=== PATIENT | male | born 1945 | race Caucasian/White ===

== ENCOUNTER → 2019-03-29 16:31 | Outpatient (CLI) | payer MEDICARE, SELFPAY ==
--- NOTE | 2019-03-29 16:46 | VDLE_ITS ---
Reason For Study: Pain LLE Procedure LEFT Exam performed in department. GSV is normal. A preliminary report was called and/or faxed CFV is compressible, spontaneous, phasic, to Kourtney. competent, and demonstrates normal augmentation. FV is compressible, spontaneous, phasic, competent and demonstrates normal augmentation. POP V is compressible, spontaneous, phasic, competent and demonstrates normal augmentation. T/P Trunk is compressible. PTV is compressible. LT PerV is compressible. Interpretation Summary Deep veins of the left lower extremity are patent and compressible segmentally. There is no evidence of left lower extremity deep vein thrombosis. Valvular competence appears intact within the proximal deep venous system on the left . The left greater saphenous vein appears patent and compressible segmentally. Ordering Physician: Honey Oconnell Referring Physician: Smith Stewart Performed By: Michelle Santillan RVT
== END ==
PROVIDERS: Family Provider Family Medicine; PCP Family Medicine; Referring Provider Physician Assistant; Visit Provider Physician Assistant
DX: M79.605 Pain in left leg (principal)
CPT/HCPCS: 93971

== ENCOUNTER → 2020-05-08 10:31 | Outpatient (CLI) | payer MEDICARE, OTHER, SELFPAY ==
[2020-05-11 20:07] LABS: Alternaria alternata <0.10 kU/L (Class 0); Aspergillus fumigatus <0.10 kU/L (Class 0); Bahia Grass <0.10 kU/L (Class 0); Bermuda Grass <0.10 kU/L (Class 0); Bluegrass, Kentucky <0.10 kU/L (Class 0); Cat Hair/Dander, Standard <0.10 kU/L (Class 0); Cedar, Mountain <0.10 kU/L (Class 0); Cladosporium herbarum <0.10 kU/L (Class 0); Cockroach, American <0.10 kU/L (Class 0); D pteronyssinus 0.84 kU/L (Class II); Dog Epithelia <0.10 kU/L (Class 0); Elm, American White <0.10 kU/L (Class 0); Hazelnut Tree <0.10 kU/L (Class 0); Hickory, White <0.10 kU/L (Class 0); Johnson Grass <0.10 kU/L (Class 0); Maple/Box Elder <0.10 kU/L (Class 0); Mucor racemosus <0.10 kU/L (Class 0); Mugwort <0.10 kU/L (Class 0); Mulberry, White <0.10 kU/L (Class 0); Oak, White <0.10 kU/L (Class 0); Penicillium chrysogen <0.10 kU/L (Class 0); Pigweed, Rough <0.10 kU/L (Class 0); Plantain, English <0.10 kU/L (Class 0); Ragweed, Short/Common <0.10 kU/L (Class 0); Sheep Sorrel(Dock) <0.10 kU/L (Class 0); Stemphylium herbarum <0.10 kU/L (Class 0); Sweet Gum <0.10 kU/L (Class 0); Sycamore, American <0.10 kU/L (Class 0)
[2020-05-11 20:50] LABS: Nettle <0.10 kU/L (Class 0)
== END ==
PROVIDERS: PCP Family Medicine; Referring Provider Internal Medicine Pulmonary Disease; Visit Provider Internal Medicine Pulmonary Disease
DX: J30.9 Allergic rhinitis, unspecified (principal)
CPT/HCPCS: 36415; 86003

== ENCOUNTER → 2022-01-06 | Outpatient (CLI) | payer MEDICARE, OTHER, SELFPAY ==
[2022-01-06 15:21] LABS: Absolute Lymphocyte Count 1.15 X10^3/uL (0.83-4.51); Absolute Neutrophil Count 4.7 X10^3/uL (2.0-7.7); Basophil# 0.07 X10^3/uL; Eosinophil# 0.36 X10^3/uL; Eosinophils% 5.1 % (0-5); Hematocrit 38.2 % (40-54); Hemoglobin 12.7 g/dL (13.0-16.5); Lymphocyte # 1.15 X10^3/ul (0.83-4.51); Lymphocyte % 16.2 % (19-41); Mean Corp Hgb Conc 33.2 g/dL (32-36); Mean Corpuscular Hgb 30.4 pg (27.0-32.0); Mean Corpuscular Volume 91.4 fL (80-94); Mean Platelet Vol. 10.5 fl (6.2-12.0); Monocyte# 0.73 X10^3/uL; Monocyte% 10.3 % (0-10); NRBC Flagged by Analyzer 0 % (0-5); Neutrophil # 4.73 X10^3/uL (2.7-7.7); Neutrophil % 66.7 % (47-70); Platelet Count 189 K/mm3 (150-450); RBC Distribution Width CV 13.1 % (11.6-14.6); RBC Distribution Width SD 43.3 fl (35.1-43.9); Red Blood Count 4.18 M/mm3 (4.6-6.2); White Blood Count 7.1 K/mm3 (4.4-11.0)
[2022-01-06 16:25] LABS: ALB/GLOB Ratio 1.1 RATIO (0.9-2.4); AST(SGOT) 21 U/L (15-37); Alanine Aminotransfer ALT/SGPT 25 U/L (16-61); Albumin, Serum 3.5 g/dL (3.2-5.0); Alkaline Phosphatase 87 U/L (45-117); Anion Gap 3 (5-15); BUN 19 mg/dL (7-18); BUN/Creat Ratio 18.3 RATIO (10-20); Chloride 104 mmol/L (98-107); Creatinine, Serum 1.04 mg/dL (0.70-1.30); EST Glomerular Filtration Rate 73 mL/min (>60); Est Glom Filt Rate - Afr Amer 89 mL/min (>60); Ferritin 123 ng/mL (26-388); Globulin 3.3 g/dL (2.2-4.2); Glucose 116 mg/dL (74-106); Potassium 4.5 mmol/L (3.5-5.1); Protein, Total 6.8 g/dL (6.4-8.2); Sodium Level 138 mmol/L (136-145)
== END | disposition home or self-care (01) ==
LOC: MFPLAB 12:21
PROVIDERS: PCP Family Medicine; Referring Provider Family Medicine; Visit Provider Family Medicine
DX: R10.12 Left upper quadrant pain (principal); I10 Essential (primary) hypertension; E61.1 Iron deficiency
CPT/HCPCS: 36415; 80053; 82728; 85025

== ENCOUNTER → 2022-01-10 | Outpatient (CLI) | payer MEDICARE, OTHER, SELFPAY | END | disposition home or self-care (01) | LOC: MFPLAB 10:54 | PROVIDERS: PCP Family Medicine; Visit Provider Family Medicine | DX: R10.12 Left upper quadrant pain (principal); I10 Essential (primary) hypertension; E61.1 Iron deficiency | CPT/HCPCS: 82653; 83986 ==

== ENCOUNTER → 2022-02-03 | Outpatient (CLI) | payer MEDICARE, OTHER, SELFPAY ==
[2022-02-09 12:15] LABS: Pancreatic Elastase, Fecal 311 (>200)
== END | disposition home or self-care (01) ==
LOC: LABSPEC 10:42
PROVIDERS: PCP Family Medicine; Referring Provider Family Medicine; Visit Provider Family Medicine
DX: R10.12 Left upper quadrant pain (principal); I10 Essential (primary) hypertension; E61.1 Iron deficiency
CPT/HCPCS: 82653

== ENCOUNTER 2022-09-14 06:09 | Emergency (ER) | payer MEDICARE, OTHER, SELFPAY ==
[2022-09-14 06:10] VITALS: PULSE 93; RESP 18; TEMP 36.2; O2SAT 96; BMI 32.2
[2022-09-14 06:13] VITALS: O2SAT 96
--- NOTE | 2022-09-14 06:55 | RAD_ITS ---
EXAM: XR CHEST, 2 VIEWS CLINICAL INDICATION: cough TECHNIQUE: Frontal and lateral views of the chest. This report was created using [employer] report generation technology. COMPARISON: None. FINDINGS: LUNGS AND PLEURAL SPACES: There is patchy increased opacity over the mid thoracic spine on the lateral view, inferior to the level of the scapula, suspicion of infiltrate in one or both superior segments of the lower lobes but not confirmed on the frontal view. Lung bases appear unremarkable. No effusions. No pneumothorax. HEART: Unremarkable. Cardiac silhouette not enlarged. MEDIASTINUM: Central airways and mediastinal contour are unremarkable. BONES/JOINTS: Unremarkable. SOFT TISSUES: Unremarkable. RAD/Chest PA and Lateral IMPRESSION: 1. Mild increased opacity over the mid thoracic spine, only seen on the lateral view, suspicious for mild posterior-medial lower lobe infiltrate, probably on the right. 2. No other suspicious findings. Electronically Signed: Huong Garcia MD at 7:46 EST ,
[2022-09-14] MEDS: MethylPREDNISolone 125 MG/2 ML Vial IV (07:19)
[2022-09-14 07:39] LABS: Absolute Lymphocyte Count 0.65 X10^3/uL (0.83-4.51); Absolute Neutrophil Count 5.6 X10^3/uL (2.0-7.7); Basophil# 0.06 X10^3/uL; Basophil% 0.8 % (0-1); Eosinophil# 0.35 X10^3/uL; Eosinophils% 4.8 % (0-5); Hematocrit 37.5 % (40-54); Hemoglobin 12.6 g/dL (13.0-16.5); Lymphocyte # 0.65 X10^3/ul (0.83-4.51); Lymphocyte % 8.9 % (19-41); Mean Corp Hgb Conc 33.6 g/dL (32-36); Mean Corpuscular Hgb 29.6 pg (27.0-32.0); Mean Corpuscular Volume 88.2 fL (80-94); Mean Platelet Vol. 9.9 fl (6.2-12.0); Monocyte# 0.55 X10^3/uL; Monocyte% 7.5 % (0-10); NRBC Flagged by Analyzer 0 % (0-5); Neutrophil # 5.64 X10^3/uL (2.7-7.7); Neutrophil % 77.2 % (47-70); Platelet Count 160 K/mm3 (150-450); RBC Distribution Width CV 12.9 % (11.6-14.6); RBC Distribution Width SD 41.8 fl (35.1-43.9); Red Blood Count 4.25 M/mm3 (4.6-6.2); White Blood Count 7.3 K/mm3 (4.4-11.0)
[2022-09-14 07:41] LABS: Anion Gap 6 (5-15); BNP,B-Type NATRIURETIC PEPTIDE 23.4 pg/mL (0-100); BUN 20 mg/dL (7-18); BUN/Creat Ratio 16.1 RATIO (10-20); Chloride 105 mmol/L (98-107); Creatinine, Serum 1.24 mg/dL (0.70-1.30); EST Glomerular Filtration Rate 60 mL/min (>60); Est Glom Filt Rate - Afr Amer 72 mL/min (>60); Estimated Creatinine Clearance 50.69 ml/min; Glucose 309 mg/dL (74-106); Magnesium 2.2 mg/dL (1.6-2.6); Potassium 4.1 mmol/L (3.5-5.1); Sodium Level 137 mmol/L (136-145)
--- NOTE | 2022-09-14 08:00 | EX.ED.DYSGE1 ---
HPI History of Present Illness Chief Complaint: Shortness of Breath Narrative Narrative: Patient is a 76-year-old male with past medical history asthma as well as hypertension and type 2 diabetes. He states for the past 3 to 4 days he has had congestion and mild cough with increased shortness of breath. He states he feels that if he does not use his nebulizer every 4-6 hours that he has difficulty breathing. He denies any chest pain or diaphoresis associated with this. He denies any known sick contact. He states that he feels like his symptoms are worsening and secondary to his has concern for infection and comes in for evaluation [facility] Medical History Asthma Cellulitis of right wrist Hypertension Tear of skin of right wrist Type 2 diabetes mellitus Home Medications albuterol sulfate 90 mcg/actuation aerosol inhaler (Ventolin HFA) 1 inh inhalation ONCE 08/21/21 [History Last Taken Unknown] aspirin 81 mg tablet,delayed release (Adult Low Dose Aspirin) 81 mg PO DAILY 08/21/21 [History Last Taken Unknown] budesonide 180 mcg/actuation breath activated powder inhaler (Pulmicort Flexhaler) 1 inh inhalation DAILY 08/21/21 [History Last Taken Unknown] doxazosin 2 mg tablet 2 mg PO DAILY 08/21/21 [History Last Taken Unknown] glimepiride 2 mg tablet 2 mg PO DAILY 08/21/21 [History Last Taken Unknown] metoprolol succinate 25 mg tablet,extended release 24 hr 25 mg PO DAILY 08/21/21 [History Last Taken Unknown] simvastatin 20 mg tablet 20 mg PO DAILY 08/21/21 [History Last Taken Unknown] alpha lipoic acid 600 mg capsule 600 mg PO BID 08/05/22 [History Last Taken Unknown] nirmatrelvir 300 mg (150 mg x2)-ritonavir 100 mg tablet,dose pack(EUA) (Paxlovid) See Rx Instructions PO .COMPLEX #30 tabs 08/05/22 [Rx Last Taken Unknown] azelastine 137 mcg (0.1 %) nasal spray aerosol 2 spray intranasal BID #30 mL 09/14/22 [Rx Last Taken Unknown] doxycycline monohydrate 100 mg capsule 100 mg PO BID #20 CAPSULES 09/14/22 [Rx Last Taken Unknown] ipratropium 0.5 mg-albuterol 3 mg (2.5 mg base)/3 mL nebulization soln 3 ml inhalation Q4H PRN shortness of breath or wheezing #180 mL 09/14/22 [Rx Last Taken Unknown] prednisone 20 mg tablet 20 mg PO DAILY 5 days #5 tabs 09/14/22 [Rx Last Taken Unknown] Allergy/AdvReac Type Severity Reaction Status Date / Time No Known Allergies Allergy Unverified 08/05/22 11:48 Surgical History History of appendectomy Social History Smoking Status: Never smoker ROS ROS ED Constitutional Constitutional ED: Denies chills or fever(s) ENT ENT ED: Reports rhinorrhea and sore throat Cardiovascular Cardiovascular: Denies chest pain Respiratory/Chest Respiratory/Chest: Reports cough and dyspnea Gastrointestinal Gastrointestinal: Denies abdominal pain, diarrhea, nausea or vomiting Genitourinary Genitourinary ED: Denies dysuria Musculoskeletal Musculoskeletal: Denies myalgias Integumentary Denies rash Neurologic Neurologic: Denies headache(s) Hematologic/Lymphatic Hematologic/Lymphatic: Denies easy bleeding or easy bruising EXAM Physical Exam Const Vital Signs: 09/14/22 06:10 09/14/22 06:13 Temperature 97.2 F L Temperature Source Temporal Pulse Rate 93 Respiratory Rate 18 Respiratory Effort Normal Respiratory Depth Normal Respiratory Pattern Normal Pulse Ox 96 Oxygen Delivery Method Room Air Room Air Positive well nourished and well developed General Appearance ED: well developed HEENT Reports moist mucous membranes HEENT Narrative: Nasal mucosa is hyperemic and boggy with inflamed inferior nasal turbinate. There is cobblestoning the posterior pharynx consistent with sinus drainage without airway edema or compromise. Eyes PERRL and EOMs intact bilaterally Neck supple and no JVD Neck Narrative: Positive anterior cervical of adenopathy noted Chest Wall palpation of chest normal Resp Resp Narrative: Patient has mild tachypnea with slight accessory muscle use. Breath sounds are diminished throughout with faint expiratory wheeze in the bilateral bases Cardio regular rate and regular rhythm GI normal to inspection, nondistended, normoactive bowel sounds, non-tender, non-distended and no masses Auscultation: normoactive bowel sounds Palpation: soft Extremity normal to inspection Extremity Narrative: No asymmetric edema no pitting edema negative Homans' sign bilaterally Neuro oriented x3 and CN's II-XII intact bilaterally Sensorium / Orientation: alert Psych mental status grossly normal Skin no rashes or lesions noted MDM MDM MDM Narrative Medical decision making narrative: Patient presented to the ER and is mild respiratory distress but no need for supplemental oxygen. His symptoms are most consistent with a viral asthma exacerbation but as there is also concern that this could be caused by a secondary pneumonia or possible electrolyte derangement or anemic event basic blood work and a chest x-ray were obtained. We discussed possible COVID and flu swabs but as patient is not had fever and he states has had COVID in the past and this did not feel similar he does not want those obtained. Blood work revealed no clinically significant findings other than a glucose of 309 consistent with a history of diabetes but no signs of DKA or HHS. Chest x-ray did question developing pneumonia and this would correlate with his cough congestion and worsening shortness of breath. Secondary to this will be placed on doxycycline but as he has no signs of respiratory distress or need for supplemental oxygen he does not need placed in the hospital and is otherwise safe for discharge. Lab Data Attestation: I reviewed the patient's lab results. Labs: Laboratory Results - last 24 hr 09/14/22 09/14/22 09/14/22 07:22 07:22 07:22 WBC 7.3 RBC 4.25 L Hgb 12.6 L Hct 37.5 L MCV 88.2 MCH 29.6 MCHC 33.6 RDW Std Deviation 41.8 RDW Coeff of Rosario 12.9 Plt Count 160 MPV 9.9 Immature Gran % (Auto) 0.800 Neut % (Auto) 77.2 H Lymph % (Auto) 8.9 L [place] % (Auto) 7.5 Eos % (Auto) 4.8 Baso % (Auto) 0.8 Absolute Neuts (auto) 5.6 Absolute Lymphs (auto) 0.65 L Nucleated RBC % 0 Sodium 137 Potassium 4.1 Chloride 105 Carbon Dioxide 26.0 Anion Gap 6 BUN 20 H Creatinine 1.24 Estim Creat Clear Calc 50.69 Est GFR (MDRD) Af Amer 72 Est GFR (MDRD) Non-Af 60 BUN/Creatinine Ratio 16.1 Glucose 309 H Calcium 9.0 Magnesium 2.2 B-Natriuretic Peptide 23.4 Radiography Diagnostic Testing: Clinical Impression(s) from Imaging Studies Chest X-Ray 09/14/22 06:55 IMPRESSION: 1. Mild increased opacity over the mid thoracic spine, only seen on the lateral view, suspicious for mild posterior-medial lower lobe infiltrate, probably on the right. 2. No other suspicious findings. Electronically Signed: Huong Garcia MD at 7:46 EST Reading Location ID and State: [facility] / [place] Tel , Service support , 2 view chest x-ray as interpreted by the emergency medicine physician reveals a hazy opacity over the mid spine concerning for developing infiltrate Discharge Plan Triage Chief Complaint: Shortness of Breath ED Provider: Jacob Frye Dx/Rx/DC Orders Clinical Impression: Pneumonia, Asthma exacerbation, Type 2 diabetes mellitus Instructions: Treating Pneumonia, Controlling Your Asthma Prescriptions: New prednisone 20 mg tablet 20 mg PO DAILY 5 Days Qty: 5 0RF doxycycline monohydrate 100 mg capsule 100 mg PO BID Qty: 20 0RF azelastine 137 mcg (0.1 %) aerosol,spray 2 spray intranasal BID Qty: 30 0RF Rx Instructions: administer into each nostril ipratropium-albuterol 0.5 mg-3 mg(2.5 mg base)/3 mL solution for nebulization 3 ml inhalation Q4H PRN (Reason: shortness of breath or wheezing) Qty: 180 0RF Rx Instructions: until breathing returns to target peak flow/parameters No Action glimepiride 2 mg tablet 2 mg PO DAILY simvastatin 20 mg tablet 20 mg PO DAILY doxazosin 2 mg tablet 2 mg PO DAILY metoprolol succinate 25 mg tablet extended release 24 hr 25 mg PO DAILY aspirin [Adult Low Dose Aspirin] 81 mg tablet,delayed release (DR/EC) 81 mg PO DAILY Pulmicort Flexhaler 180 mcg/actuation aerosol powdr breath activated 1 inh inhalation DAILY albuterol sulfate [Ventolin HFA] 90 mcg/actuation HFA aerosol inhaler 1 inh inhalation ONCE alpha lipoic acid 600 mg capsule 600 mg PO BID Paxlovid (EUA) 300 mg (150 mg x 2)-100 mg tablets,dose pack See Rx Instructions PO .COMPLEX Qty: 30 0RF Rx Instructions: take TWO 150 mg tablets of nirmatrelvir with ONE 100 mg tablet of ritonavir twice daily for 5 days PO Primary Care Provider: Tony Parks Referrals: Tony Parks MD [Primary Care Provider] - Activity Restrictions/Additional Instructions: Please take your antibiotics as directed to help resolve your pneumonia and continue with the nebulizers and steroids to reduce inflammation and bronchospasm. It will typically take 2 to 3 days before you notice symptom improvement. If you have any further concerns please return to the ER for repeat evaluation Disposition Disposition: Home, Self Care
[2022-09-14] MEDS: Doxycycline 100 MG CAPSULE PO (08:14)
[2022-09-14 08:15] VITALS: BP 151/77; PULSE 80; RESP 18; O2SAT 95
== END 2022-09-14 08:18 | disposition home or self-care (01) ==
PROVIDERS: Emergency Provider Emergency Medicine; PCP Family Medicine; Visit Provider Emergency Medicine
DX: J18.9 Pneumonia, unspecified organism (principal); E11.9 Type 2 diabetes mellitus without complications; J45.901 Unspecified asthma with (acute) exacerbation
CPT/HCPCS: 71046; 80048; 83735; 83880; 85025; 96374; 99283; A4216

== ENCOUNTER → 2022-10-21 | Outpatient (CLI) | payer MEDICARE, OTHER, SELFPAY ==
--- NOTE | 2022-10-21 16:05 | RAD_ITS ---
INDICATION: Pneumonia EXAMINATION/TECHNIQUE: X-RAY - XR Chest 2 Views COMPARISON: 09/14/2022 FINDINGS: LINES/DEVICES: None. LUNGS: No consolidation, edema or effusion. No pneumothorax. MEDIASTINUM AND CARDIOVASCULAR STRUCTURES: Cardiac silhouette not enlarged. Central airways and mediastinal contour are unremarkable. RAD/Chest PA and Lateral IMPRESSION: No radiographic evidence of acute cardiopulmonary disease. Electronically Signed: Phillip Carrillo MD at 16:18 EST ,
== END | disposition home or self-care (01) ==
PROVIDERS: PCP Family Medicine; Referring Provider Family Medicine; Visit Provider Family Medicine
DX: J18.9 Pneumonia, unspecified organism (principal)
CPT/HCPCS: 71046

== ENCOUNTER 2022-10-22 17:26 | Emergency (ER) | payer MEDICARE, OTHER, SELFPAY ==
[2022-10-22 17:28] VITALS: BP 177/72; PULSE 90; RESP 22; TEMP 37.2; O2SAT 94; BMI 30.9
--- NOTE | 2022-10-22 17:50 | EKG12_ITS ---
Test Reason : SOB Blood Pressure : / mmHG Vent. Rate : 087 BPM Atrial Rate : 087 BPM P-R Int : 142 ms QRS Dur : 068 ms QT Int : 332 ms P-R-T Axes : 022 053 051 degrees QTc Int : 399 ms Normal sinus rhythm Nonspecific ST abnormality Abnormal ECG Confirmed by ARI BARNHART, ROSHAN ([id number]), editor sound KIMMIE COLEY ([id number]) on 10/24/2022 2:35:25 PM Referred By: DIVINE Confirmed By:ROSHAN CHAPMAN MD
--- NOTE | 2022-10-22 17:52 | ED.VIS.DYS ---
HPI <RADHA Little - Last Filed: 10/22/22 18:54> History of Present Illness Chief Complaint: Shortness of Breath Narrative Narrative: 68-year-old male with PMH of HTN, HLD, DM2, asthma presents with 1 week of cough and congestion. He states he is not coughing up any phlegm and feels like it stuck in his chest. He started to feel short of breath last night and used his nebulizer 3 times a day with minimal improvement. No fever, chest pain, nausea or vomiting, or diaphoresis. He was treated for pneumonia a month ago with doxycycline and prednisone. PFS <RADHA Ltitle - Last Filed: 10/22/22 18:54> [facility] Medical History Asthma Cellulitis of right wrist Hypertension Tear of skin of right wrist Type 2 diabetes mellitus Home Medications albuterol sulfate 90 mcg/actuation aerosol inhaler (Ventolin HFA) 1 inh inhalation ONCE 08/21/21 [History Last Taken Unknown] aspirin 81 mg tablet,delayed release (Adult Low Dose Aspirin) 81 mg PO DAILY 08/21/21 [History Last Taken Unknown] budesonide 180 mcg/actuation breath activated powder inhaler (Pulmicort Flexhaler) 1 inh inhalation DAILY 08/21/21 [History Last Taken Unknown] doxazosin 2 mg tablet 2 mg PO DAILY 08/21/21 [History Last Taken Unknown] glimepiride 2 mg tablet 2 mg PO DAILY 08/21/21 [History Last Taken Unknown] metoprolol succinate 25 mg tablet,extended release 24 hr 25 mg PO DAILY 08/21/21 [History Last Taken Unknown] simvastatin 20 mg tablet 20 mg PO DAILY 08/21/21 [History Last Taken Unknown] alpha lipoic acid 600 mg capsule 600 mg PO BID 08/05/22 [History Last Taken Unknown] azelastine 137 mcg (0.1 %) nasal spray aerosol 2 spray intranasal BID #30 mL 09/14/22 [Rx Last Taken Unknown] ipratropium 0.5 mg-albuterol 3 mg (2.5 mg base)/3 mL nebulization soln 3 ml inhalation Q4H PRN shortness of breath or wheezing #180 mL 09/14/22 [Rx Last Taken Unknown] azithromycin 250 mg tablet See Rx Instructions PO .COMPLEX #6 tabs 10/11/22 [Rx Last Taken Unknown] insulin detemir U-100 100 unit/mL (3 mL) subcutaneous pen (Levemir FlexTouch U-100 Insulin) 2 unit subcut 10/11/22 [History Last Taken Unknown] prednisone 20 mg tablet 40 mg PO DAILY 5 days #10 tabs 10/22/22 [Rx Last Taken Unknown] Allergy/AdvReac Type Severity Reaction Status Date / Time No Known Allergies Allergy Verified 10/22/22 17:27 Surgical History History of appendectomy Social History Smoking Status: Never smoker ROS <RADHA Little - Last Filed: 10/22/22 18:54> ROS ED ROS Narrative Constitutional: Negative for fever, chills, malaise. ENT: Negative for sore throat, ear pain, rhinorrhea. CVS: Negative for palpitations, chest pain, syncope. Respiratory: Positive for shortness of breath, cough. Negative for orthopnea. GI: Negative for abdominal pain, nausea, vomiting, diarrhea. Neuro: Negative for headache. Skin: Negative for rash, abscess, or wound. EXAM <RADHA Little - Last Filed: 10/22/22 18:54> Physical Exam Narrative Exam Narrative: CONST: Patient sitting in no acute distress. EYES: Normal inspection. ENT: Normal inspection, moist mucous membranes. NECK: Normal inspection. RESP: Mild conversational dyspnea after 5 to 6 words, slight audible wheezing. On auscultation diffuse expiratory wheezing in all lung pinto. No accessory muscle use or retractions. CVS: Regular rate and rhythm, no murmur, no gallop. SKIN: Color normal, no rash, warm, dry, intact. EXTREMITIES: Normal appearance, no pedal edema. NEURO: Oriented x4. PSYCH: Normal affect. Const Vital Signs: 10/22/22 17:28 10/22/22 17:58 10/22/22 17:28 Temperature 99 F 99 F Temperature Source Temporal Temporal Pulse Rate 90 90 Respiratory Rate 22 H 22 H Respiratory Effort Short of Breath Respiratory Depth Shallow Respiratory Pattern Tachypnea Blood Pressure 177/72 H 177/72 H Blood Pressure Mean 107 107 Pulse Ox 94 94 Oxygen Delivery Method Room Air Room Air Room Air 10/22/22 18:09 10/22/22 18:09 Temperature Temperature Source Pulse Rate 81 Respiratory Rate 24 H Respiratory Effort Respiratory Depth Respiratory Pattern Blood Pressure Blood Pressure Mean Pulse Ox 95 Oxygen Delivery Method Room Air <Dr. Omega Melissa MD - Last Filed: 10/22/22 19:36> Physical Exam Const Vital Signs: 10/22/22 17:28 10/22/22 17:58 10/22/22 17:28 Temperature 99 F 99 F Temperature Source Temporal Temporal Pulse Rate 90 90 Respiratory Rate 22 H 22 H Respiratory Effort Short of Breath Respiratory Depth Shallow Respiratory Pattern Tachypnea Blood Pressure 177/72 H 177/72 H Blood Pressure Mean 107 107 Pulse Ox 94 94 Oxygen Delivery Method Room Air Room Air Room Air 10/22/22 18:09 10/22/22 18:09 Temperature Temperature Source Pulse Rate 81 Respiratory Rate 24 H Respiratory Effort Respiratory Depth Respiratory Pattern Blood Pressure Blood Pressure Mean Pulse Ox 95 Oxygen Delivery Method Room Air MDM <RADHA Little - Last Filed: 10/22/22 18:54> MDM MDM Narrative Medical decision making narrative: Patient has 1 week of cough and congestion and started to feel short of breath last night. He has a history of asthma. He appears well and nontoxic. BP 177/72, respiratory rate 22, otherwise normal vital signs. He is 94% or above on room air. He has mild conversational dyspnea and expiratory wheezing in all lung pinto. No retractions or accessory muscle use. Labs and cardiac enzymes will be obtained. CBC and BMP are unremarkable with the exception of glucose of 277 consistent with his diabetes. EKG is sinus rhythm with no ischemic changes and troponin is 4. CXR shows no acute process. He had improvement after a DuoNeb and oral prednisone 40 mg. His symptoms are consistent with an asthma exacerbation I prescribed prednisone burst x5 days for home with instructions to keep using his nebulizer. He has an appointment with his primary care doctor in 2 days. He should watch his blood sugars as well. He was agreeable with this plan and discharged in stable condition. Differential for cough/dyspnea: Viral versus bacterial pneumonia, asthma exacerbation, ACS I considered admission but he feels significantly improved after treatment, has better aeration with decreased wheezing, able to speak in full sentences now, and is not requiring oxygen. Lab Data Attestation: I reviewed the patient's lab results. Labs: Laboratory Results - last 24 hr 10/22/22 10/22/22 17:45 17:45 WBC 9.4 RBC 4.37 L Hgb 13.1 Hct 38.9 L MCV 89.0 MCH 30.0 MCHC 33.7 RDW Std Deviation 41.4 RDW Coeff of Rosario 12.7 Plt Count 196 MPV 9.5 Immature Gran % (Auto) 0.400 Neut % (Auto) 72.5 H Lymph % (Auto) 10.8 L [place] % (Auto) 8.0 Eos % (Auto) 7.4 H Baso % (Auto) 0.9 Absolute Neuts (auto) 6.8 Absolute Lymphs (auto) 1.02 Nucleated RBC % 0 Sodium 137 Potassium 4.0 Chloride 103 Carbon Dioxide 26.0 Anion Gap 8 BUN 18 Creatinine 1.19 Estim Creat Clear Calc 52.82 Est GFR (MDRD) Af Amer 76 Est GFR (MDRD) Non-Af 63 BUN/Creatinine Ratio 15.1 Glucose 277 H Calcium 8.9 Troponin I High Sens 4 Radiography Diagnostic Testing: Clinical Impression(s) from Imaging Studies Chest X-Ray 10/22/22 18:00 IMPRESSION: No radiographic evidence of acute cardiopulmonary disease. Electronically Signed: Aren Tapia MD at 18:15 EST Reading Location ID and State: [facility] / [place] , Service support , ED attending interpretation of chest x-ray shows normal heart size, no acute infiltrate EKG Initial EKG: Attestation: I personally reviewed and interpreted this EKG as follows: Comments: ED attending interpretation of EKG shows normal sinus rhythm at 87 bpm, no ST segment changes, no ectopy <Dr. Omega Melissa MD - Last Filed: 10/22/22 19:36> [facility] MDM Narrative Medical decision making narrative: Patient has 1 week of cough and congestion and started to feel short of breath last night. He has a history of asthma. He appears well and nontoxic. BP 177/72, respiratory rate 22, otherwise normal vital signs. He is 94% or above on room air. He has mild conversational dyspnea and expiratory wheezing in all lung pinto. No retractions or accessory muscle use. Labs and cardiac enzymes will be obtained. CBC and BMP are unremarkable with the exception of glucose of 277 consistent with his diabetes. EKG is sinus rhythm with no ischemic changes and troponin is 4. CXR shows no acute process. He had improvement after a DuoNeb and oral prednisone 40 mg. His symptoms are consistent with an asthma exacerbation I prescribed prednisone burst x5 days for home with instructions to keep using his nebulizer. He has an appointment with his primary care doctor in 2 days. He should watch his blood sugars as well. He was agreeable with this plan and discharged in stable condition. Differential for cough/dyspnea: Viral versus bacterial pneumonia, asthma exacerbation, ACS I considered admission but he feels significantly improved after treatment, has better aeration with decreased wheezing, able to speak in full sentences now, and is not requiring oxygen. I have personally performed a face to face assessment of the patient and have reviewed the OLIVER Note. I performed a substantive portion of the visit including all aspects of the following. My villasenor findings include: History is [76-year-old male history of asthma no COPD and a non-smoker. Started having wheezing with coughing the last several days. Was treated for pneumonia within the last month.] Exam is [H EENT exam unremarkable. Neck nontender. Lungs clear to auscultation bilaterally after he was treated with the aerosol treatments. He also has already received steroids. Heart regular rhythm rate about 80 no murmur. Abdomen soft nontender. Moving all 4 extremities. Calves are nontender without edema.] Medical Decision Making [patient with an asthma flare. His labs are unremarkable. His blood sugars 277 he is diabetic. His chest x-ray showed no signs of pneumonia. He will be discharged home with prednisone 40 mg a day. He has a nebulizer and an inhaler at home. Follow-up if not improving. Return if worse.] Other additions or changes: [None] Lab Data Labs: Laboratory Results - last 24 hr 10/22/22 10/22/22 17:45 17:45 WBC 9.4 RBC 4.37 L Hgb 13.1 Hct 38.9 L MCV 89.0 MCH 30.0 MCHC 33.7 RDW Std Deviation 41.4 RDW Coeff of Rosario 12.7 Plt Count 196 MPV 9.5 Immature Gran % (Auto) 0.400 Neut % (Auto) 72.5 H Lymph % (Auto) 10.8 L [place] % (Auto) 8.0 Eos % (Auto) 7.4 H Baso % (Auto) 0.9 Absolute Neuts (auto) 6.8 Absolute Lymphs (auto) 1.02 Nucleated RBC % 0 Sodium 137 Potassium 4.0 Chloride 103 Carbon Dioxide 26.0 Anion Gap 8 BUN 18 Creatinine 1.19 Estim Creat Clear Calc 52.82 Est GFR (MDRD) Af Amer 76 Est GFR (MDRD) Non-Af 63 BUN/Creatinine Ratio 15.1 Glucose 277 H Calcium 8.9 Troponin I High Sens 4 Radiography Diagnostic Testing: Clinical Impression(s) from Imaging Studies Chest X-Ray 10/22/22 18:00 IMPRESSION: No radiographic evidence of acute cardiopulmonary disease. Electronically Signed: Aren Tapia MD at 18:15 EST Reading Location ID and State: [facility] / [place] , Service support , EKG Initial EKG: Interpretation: Sinus Rhythm and No Acute Injury Pattern Discharge Plan Triage Chief Complaint: Shortness of Breath ED Midlevel Provider: Gala Hardwick ED Provider: Omega Melissa Dx/Rx/DC Orders Clinical Impression: Asthma exacerbation Instructions: ED Asthma, Acute (Adult) Prescriptions: New prednisone 20 mg tablet 40 mg PO DAILY 5 Days Qty: 10 0RF No Action glimepiride 2 mg tablet 2 mg PO DAILY simvastatin 20 mg tablet 20 mg PO DAILY doxazosin 2 mg tablet 2 mg PO DAILY metoprolol succinate 25 mg tablet extended release 24 hr 25 mg PO DAILY aspirin [Adult Low Dose Aspirin] 81 mg tablet,delayed release (DR/EC) 81 mg PO DAILY Pulmicort Flexhaler 180 mcg/actuation aerosol powdr breath activated 1 inh inhalation DAILY albuterol sulfate [Ventolin HFA] 90 mcg/actuation HFA aerosol inhaler 1 inh inhalation ONCE alpha lipoic acid 600 mg capsule 600 mg PO BID azithromycin 250 mg tablet See Rx Instructions PO .COMPLEX Qty: 6 0RF Rx Instructions: take 500 mg today (day 1), then 250 mg for 4 days (days 2-5) PO Levemir FlexTouch U-100 Insuln 100 unit/mL (3 mL) insulin pen 2 unit subcut azelastine 137 mcg (0.1 %) aerosol,spray 2 spray intranasal BID Qty: 30 0RF Rx Instructions: administer into each nostril ipratropium-albuterol 0.5 mg-3 mg(2.5 mg base)/3 mL solution for nebulization 3 ml inhalation Q4H PRN (Reason: shortness of breath or wheezing) Qty: 180 0RF Rx Instructions: until breathing returns to target peak flow/parameters Primary Care Provider: Tony Parks Referrals: Tony Parks MD [Primary Care Provider] - Activity Restrictions/Additional Instructions: Continue using your nebulizer every 4-6 hours as needed and take the prescribed steroids. Follow-up with your doctor in 2 days but come back to the ER if your symptoms worsen before then. Disposition Disposition: Home, Self Care
[2022-10-22 17:58] VITALS: O2SAT 94
[2022-10-22 17:58] LABS: Absolute Lymphocyte Count 1.02 X10^3/uL (0.83-4.51); Absolute Neutrophil Count 6.8 X10^3/uL (2.0-7.7); Basophil# 0.08 X10^3/uL; Basophil% 0.9 % (0-1); Eosinophils% 7.4 % (0-5); Hematocrit 38.9 % (40-54); Hemoglobin 13.1 g/dL (13.0-16.5); Lymphocyte # 1.02 X10^3/ul (0.83-4.51); Lymphocyte % 10.8 % (19-41); Mean Corp Hgb Conc 33.7 g/dL (32-36); Mean Platelet Vol. 9.5 fl (6.2-12.0); Monocyte# 0.75 X10^3/uL; NRBC Flagged by Analyzer 0 % (0-5); Neutrophil # 6.82 X10^3/uL (2.7-7.7); Neutrophil % 72.5 % (47-70); Platelet Count 196 K/mm3 (150-450); RBC Distribution Width CV 12.7 % (11.6-14.6); RBC Distribution Width SD 41.4 fl (35.1-43.9); Red Blood Count 4.37 M/mm3 (4.6-6.2); White Blood Count 9.4 K/mm3 (4.4-11.0)
--- NOTE | 2022-10-22 18:00 | RAD_ITS ---
EXAM: XR CHEST, 2 VIEWS CLINICAL INDICATION: cough TECHNIQUE: Frontal and lateral views of the chest. This report was created using [employer] report generation technology. COMPARISON: Study done yesterday FINDINGS: LUNGS AND PLEURAL SPACES: Unremarkable. No consolidation or edema. No pneumothorax. No effusion. HEART: Unremarkable. Cardiac silhouette not enlarged. MEDIASTINUM: Central airways and mediastinal contour are unremarkable. BONES/JOINTS: Unremarkable. SOFT TISSUES: Unremarkable. RAD/Chest PA and Lateral IMPRESSION: No radiographic evidence of acute cardiopulmonary disease. Electronically Signed: Aren Tapia MD at 18:15 [facility] ,
[2022-10-22] MEDS: Ipratropium/Albuterol Sulfate 3 ML AMPUL.NEB INHALATION (18:06)
[2022-10-22 18:09] VITALS: PULSE 81; RESP 24; O2SAT 95
[2022-10-22 18:17] LABS: Anion Gap 8 (5-15); BUN 18 mg/dL (7-18); BUN/Creat Ratio 15.1 RATIO (10-20); Calcium,Total 8.9 mg/dL (8.5-10.1); Chloride 103 mmol/L (98-107); Creatinine, Serum 1.19 mg/dL (0.70-1.30); EST Glomerular Filtration Rate 63 mL/min (>60); Est Glom Filt Rate - Afr Amer 76 mL/min (>60); Estimated Creatinine Clearance 52.82 ml/min; Glucose 277 mg/dL (74-106); Sodium Level 137 mmol/L (136-145); Troponin-I HS 4 pg/mL (3.0-78.0)
[2022-10-22] MEDS: predniSONE 20 MG Tablet 40 MG PO (19:07)
[2022-10-22 19:46] VITALS: BP 152/79; PULSE 74; RESP 20; O2SAT 97
== END 2022-10-22 19:48 | disposition home or self-care (01) ==
PROVIDERS: Physician Assistant; Emergency Provider Emergency Medicine; PCP Family Medicine; Visit Provider Emergency Medicine
DX: J45.901 Unspecified asthma with (acute) exacerbation (principal)
CPT/HCPCS: 71046; 80048; 84484; 85025; 93005; 94640; 99284; A4216

== ENCOUNTER → 2022-12-22 | Outpatient (CLI) | payer MEDICARE, OTHER, SELFPAY ==
[2022-12-22 11:03] LABS: ALB/GLOB Ratio 1.1 RATIO (0.9-2.4); AST(SGOT) 15 U/L (15-37); Alanine Aminotransfer ALT/SGPT 24 U/L (16-61); Albumin, Serum 3.4 g/dL (3.2-5.0); Alkaline Phosphatase 87 U/L (45-117); Anion Gap 6 (5-15); BUN 18 mg/dL (7-18); BUN/Creat Ratio 16.7 RATIO (10-20); Calcium,Total 8.7 mg/dL (8.5-10.1); Chloride 105 mmol/L (98-107); Creatinine, Serum 1.08 mg/dL (0.70-1.30); EST Glomerular Filtration Rate 70 mL/min (>60); Est Glom Filt Rate - Afr Amer 85 mL/min (>60); Glucose 147 mg/dL (74-106); PSA,Total- Diagnostic 4.91 ng/mL (0.0-4.0); Protein, Total 6.4 g/dL (6.4-8.2); Sodium Level 140 mmol/L (136-145)
[2022-12-22 11:06] LABS: Hemoglobin A1c 7.3 % (3.8-5.6)
== END | disposition home or self-care (01) ==
LOC: MTLAB 09:08
PROVIDERS: PCP Family Medicine; Referring Provider Family Medicine; Visit Provider Family Medicine
DX: R97.20 Elevated prostate specific antigen [PSA] (principal); E11.8 Type 2 diabetes mellitus with unspecified complications
CPT/HCPCS: 36415; 80053; 83036; 84153

== ENCOUNTER → 2023-02-01 | Outpatient (CLI) | payer MEDICARE, OTHER, SELFPAY ==
[2023-02-01 13:58] LABS: Absolute Neutrophil Count 6.7 X10^3/uL (2.0-7.7); Basophil# 0.08 X10^3/uL; Basophil% 0.9 % (0-1); Eosinophil# 0.19 X10^3/uL; Eosinophils% 2.2 % (0-5); Hematocrit 38.7 % (40-54); Hemoglobin 12.7 g/dL (13.0-16.5); Lymphocyte % 12.8 % (19-41); Mean Corp Hgb Conc 32.8 g/dL (32-36); Mean Corpuscular Hgb 29.5 pg (27.0-32.0); Mean Corpuscular Volume 89.8 fL (80-94); Mean Platelet Vol. 9.3 fl (6.2-12.0); Monocyte# 0.54 X10^3/uL; Monocyte% 6.3 % (0-10); NRBC Flagged by Analyzer 0 % (0-5); Neutrophil # 6.66 X10^3/uL (2.7-7.7); Neutrophil % 77.3 % (47-70); Platelet Count 188 K/mm3 (150-450); RBC Distribution Width CV 13.2 % (11.6-14.6); RBC Distribution Width SD 42.9 fl (35.1-43.9); Red Blood Count 4.31 M/mm3 (4.6-6.2); White Blood Count 8.6 K/mm3 (4.4-11.0)
[2023-02-06 14:37] LABS: Immunoglobulin E 53 IU/mL (6-495)
== END | disposition home or self-care (01) ==
LOC: PAVLAB 13:36
PROVIDERS: PCP Family Medicine; Referring Provider Internal Medicine; Visit Provider Internal Medicine
DX: J45.909 Unspecified asthma, uncomplicated (principal)
CPT/HCPCS: 36415; 82785; 85025

== ENCOUNTER → 2023-02-28 | Outpatient (CLI) | payer MEDICARE, OTHER, SELFPAY ==
--- NOTE | 2023-03-01 09:26 | PFT ---
INTRODUCTION: The patient is a 77-year-old male that presents for pulmonary function studies secondary to a diagnosis of asthma. Respiratory therapy reported good patient effort. Bronchodilators were used during testing. INTERPRETATION: Forced expiration spirometry demonstrates no evidence of a large airways obstructive ventilatory defect. There was no significant response to aerosolized bronchodilators. Spirograms are of good quality and plateau normally. There is flattening of the inspiratory limb of the flow volume loop which could suggest a variable extrathoracic obstruction. Body plethysmography was performed and revealed a decreased TLC to 4.72 L, 73% of predicted, indicative of a mild restrictive ventilatory impairment. Diffusing capacity by single breath CO was within normal limits. IMPRESSION: Mild restrictive ventilatory impairment with preserved ejection fraction. There was flattening of the inspiratory limb of the flow volume loop which could suggest a variable extrathoracic obstruction.
== END | disposition home or self-care (01) ==
LOC: PSN 10:26
PROVIDERS: PCP Family Medicine; Referring Provider Internal Medicine; Visit Provider Internal Medicine
DX: J45.909 Unspecified asthma, uncomplicated (principal)
CPT/HCPCS: 94060; 94726; 94729

== ENCOUNTER → 2023-06-22 | Outpatient (CLI) | payer MEDICARE, OTHER, SELFPAY ==
[2023-06-22 12:23] LABS: Absolute Lymphocyte Count 1.35 X10^3/uL (0.83-4.51); Basophil# 0.08 X10^3/uL; Basophil% 1.1 % (0-1); Eosinophil# 0.31 X10^3/uL; Eosinophils% 4.1 % (0-5); Hematocrit 39.8 % (40-54); Hemoglobin 12.9 g/dL (13.0-16.5); Lymphocyte # 1.35 X10^3/ul (0.83-4.51); Lymphocyte % 17.9 % (19-41); Mean Corp Hgb Conc 32.4 g/dL (32-36); Mean Corpuscular Hgb 29.2 pg (27.0-32.0); Mean Platelet Vol. 10.5 fl (6.2-12.0); Monocyte# 0.75 X10^3/uL; Monocyte% 9.9 % (0-10); NRBC Flagged by Analyzer 0 % (0-5); Neutrophil # 5.01 X10^3/uL (2.7-7.7); Neutrophil % 66.3 % (47-70); Platelet Count 182 K/mm3 (150-450); RBC Distribution Width CV 13.6 % (11.6-14.6); RBC Distribution Width SD 44.8 fl (35.1-43.9); Red Blood Count 4.42 M/mm3 (4.6-6.2); White Blood Count 7.6 K/mm3 (4.4-11.0)
[2023-06-22 12:30] LABS: ALB/GLOB Ratio 1.2 RATIO (0.9-2.4); AST(SGOT) 54 U/L (15-37); Alanine Aminotransfer ALT/SGPT 42 U/L (16-61); Albumin, Serum 3.5 g/dL (3.2-5.0); Alkaline Phosphatase 83 U/L (45-117); Anion Gap 3 (5-15); BUN 22 mg/dL (7-18); BUN/Creat Ratio 19.6 RATIO (10-20); Chloride 106 mmol/L (98-107); Creatinine, Serum 1.12 mg/dL (0.70-1.30); EST Glomerular Filtration Rate 67 mL/min (>60); Est Glom Filt Rate - Afr Amer 81 mL/min (>60); Glucose 127 mg/dL (74-106); Potassium 4.4 mmol/L (3.5-5.1); Protein, Total 6.5 g/dL (6.4-8.2); Sodium Level 139 mmol/L (136-145)
[2023-06-22 13:02] LABS: Hemoglobin A1c 6.6 % (3.8-5.6)
== END | disposition home or self-care (01) ==
LOC: MFPLAB 10:33
PROVIDERS: PCP Family Medicine; Visit Provider Family Medicine
DX: E11.8 Type 2 diabetes mellitus with unspecified complications (principal)
CPT/HCPCS: 36415; 80053; 83036; 85025

== ENCOUNTER → 2023-07-21 | Outpatient (CLI) | payer MEDICARE, OTHER, SELFPAY ==
--- NOTE | 2023-07-21 12:45 | US_ITS ---
INDICATION: repeat due to proglonged pain, unresolved EXAMINATION: Ultrasound US Scrotum (Contents) TECHNIQUE: Realtime ultrasound of the testicles was performed with grayscale, Color Doppler and spectral Doppler analysis. COMPARISON: None. FINDINGS: TESTES: Symmetric size and homogeneous. Intratesticular vascular flow demonstrated bilaterally. No evidence of testicular torsion. EPIDIDYMIDES: Symmetric size and vascularity. Small epididymal cyst x2 on the right, measuring 1.0 x 0.9 x 1.0 cm, and 0.6 x 0.4 x 0.6 cm. Small epididymal cyst on the left 1.0 x 0.9 x 0.9 cm. HYDROCELE: Small bilateral. VARICOCELE: Present on the left. SCROTAL WALL: Unremarkable. OTHER: None. US/Testicular with Arterial Flow IMPRESSION: Small bilateral hydrocele. Small varicocele on the left. No evidence of testicular torsion. Electronically Signed: Yissel Champagne MD at 20:48 EST ,
== END | disposition home or self-care (01) ==
LOC: US 12:44
PROVIDERS: PCP Family Medicine; Referring Provider Family Medicine; Visit Provider Family Medicine
DX: N50.3 Cyst of epididymis (principal)
CPT/HCPCS: 76870; 93976

== ENCOUNTER → 2023-09-18 | Outpatient (CLI) | payer MEDICARE, OTHER, SELFPAY ==
--- OUTSIDE RECORDS SUMMARY | 2023-09-18 12:41 | XMS RPT_ITS | CCD ---
Author Name Unknown Address [address] [facility] [address] [place] [address] Organization [facility] Care Team Providers Care Automatic Shirring Machine Operator Name Role Phone JILL PRITCHARD Admitting UnavailJILL Casillas Primary Care UnavailJILL Casillas Attending UnavailKESHAWN Walker Consulting Unavailable PROVIDER, UNKNOWN Consulting Unavailable PROVIDER, UNKNOWN Consulting Unavailable PROVIDER, UNKNOWN Consulting Unavailable KIRAN LOUIS Attending Unavailable KIRAN LOUIS Admitting Unavailable KIRAN LOUIS Primary Care Unavailable KIRAN LOUIS Consulting Unavailable PROVIDER, UNKNOWN Consulting Unavailable PROVIDER, UNKNOWN Consulting Unavailable PROVIDER, UNKNOWN Consulting Unavailable Charly BARNHART, Selena [place] Primary Care Provider [phone] Selena Parks MD Primary Care Provider Selena Parks MD Primary Care Provider Selena Parks MD Primary Care Provider TRISH BAE Attending Unavailable SELENA PARKS Referring Unavailable SELENA PARKS Primary Care Unavailable SELENA PARKS Primary Care Unavailable SELENA PARKS Primary Care Unavailable TRISH BAE Referring Unavailable TRISH BAE Attending Unavailable SELENA PARKS Primary Care Unavailable TRISH BAE Attending Unavailable SELENA PRAKS Referring Unavailable SELENA PARKS Primary Care Unavailable Selena Parks MD Primary Care Provider [phone] Medications Completed/Discontinued Medications Medication Drug Class(es) Dates Sig (Normalized) Sig (Original) aspirin 81 mg delayed release oral tablet (20 sources) Platelet Aggregation Inhibitor, Nonsteroidal Anti-inflammatory Drug take 1 tablet by mouth once daily aspirin, enteric coated (ASPIRIN, ENTERIC COATED) 81 mg EC tablet Indications: Personal history of colonic polyps , Family history of colon cancer Take 81 mg by mouth once daily. 0 Active Problems Active Problems Problem Classification Problem Date Documented Date Episodic/Chronic Chronic kidney disease (1 source) Chronic kidney disease, stage 2 (mild); Translations: [Chronic kidney disease, stage II (mild)] Onset: 10-06-2022 Chronic Diabetes mellitus with complications (20 sources) Type 2 diabetes mellitus; Translations: [Type 2 diabetes mellitus with diabetic polyneuropathy] Onset: 02-19-2021 Chronic Disorders of lipid metabolism (20 sources) Mixed hyperlipidemia; Translations: [Mixed hyperlipidemia] Onset: 02-19-2021 02-19-2021 Chronic Diverticulosis and diverticulitis (20 sources) Diverticulosis of colon; Translations: [Diverticulosis of large intestine without perforation or abscess without bleeding] Onset: 07-15-2009 07-15-2009 Chronic Other nutritional; endocrine; and metabolic disorders (20 sources) Obesity; Translations: [Obesity, unspecified] Onset: 02-19-2021 02-19-2021 Chronic Other nutritional; endocrine; and metabolic disorders (1 source) Obesity, unspecified; Translations: [Class 1 obesity with serious comorbidity and body mass index (BMI) of 30.0 to 30.9 in adult, unspecified obesity type] Onset: 02-19-2021 Chronic Other nutritional; endocrine; and metabolic disorders (1 source) Body mass index (BMI) 30.0-30.9, adult; Translations: [Class 1 obesity with serious comorbidity and body mass index (BMI) of 30.0 to 30.9 in adult, unspecified obesity type] Onset: 02-19-2021 Chronic Other screening for suspected conditions (not mental disorders or infectious disease) (3 sources) Encounter for screening for malignant neoplasm of prostate; Translations: [Other specified abnormal findings of blood chemistry] Onset: 10-06-2022 Episodic Past or Other Problems Problem Classification Problem Date Documented Da te Episodic/Chronic Gastritis and duodenitis (20 sources) Acute gastritis; Translations: [Acute gastritis without bleeding] Onset: 07-15-2009 07-15-2009 Episodic Nausea and vomiting (20 sources) Nausea and vomiting; Translations: [Nausea with vomiting, unspecified] Onset: 07-15-2009 07-15-2009 Episodic Other and unspecified benign neoplasm (20 sources) History of polyp of colon; Translations: [Personal history of colonic polyps] Onset: 06-01-2009 06-01-2009 Episodic Results Test Name Value Interpretation Reference Range Facil ity Vital Signs Date Time Vital Sign Value Performing Clinician Ayden castro 09-06-2022 11:43-0500 Diastolic blood pressure 70 mm[Hg] Trish Kupiec OCCUPATIONAL THERAPY SUPERVISOR.SHEET ROCK INSTALLATION HELPER Work Phone: [facility] 09-06-2022 11:43-0500 Systolic blood pressure 150 mm[Hg] Trish Kupiec OCCUPATIONAL THERAPY SUPERVISOR.SHEET ROCK INSTALLATION HELPER Work Phone: [facility] 09-06-2022 11:24-0500 Body height 177.8 cm Trish Kupiec OCCUPATIONAL THERAPY SUPERVISOR.SHEET ROCK INSTALLATION HELPER Work Phone: [facility] 09-06-2022 11:24-0500 Body weight 97.52 kg Trish Kupiec OCCUPATIONAL THERAPY SUPERVISOR.SHEET ROCK INSTALLATION HELPER Work Phone: [facility] 09-06-2022 11:24-0500 Heart rate 63 /min Trish Kupiec OCCUPATIONAL THERAPY SUPERVISOR.SHEET ROCK INSTALLATION HELPER Work Phone: [facility] 09-06-2022 11:24-0500 SaO2% (BldA) [Mass fraction] 97 % Trish Kupiec OCCUPATIONAL THERAPY SUPERVISOR.SHEET ROCK INSTALLATION HELPER Work Phone: [facility] 05-06-2022 11:32-0400 Diastolic blood pressure 82 mm[Hg] Trish Kupiec OCCUPATIONAL THERAPY SUPERVISOR.SHEET ROCK INSTALLATION HELPER Work Phone: [facility] 05-06-2022 11:32-0400 Systolic blood pressure 156 mm[Hg] Rtish Kupiec OCCUPATIONAL THERAPY SUPERVISOR.SHEET ROCK INSTALLATION HELPER Work Phone: [facility] 05-06-2022 11:05-0400 Body height 177.8 cm Trish Kupiec OCCUPATIONAL THERAPY SUPERVISOR.SHEET ROCK INSTALLATION HELPER Work Phone: [facility] 05-06-2022 11:05-0400 Body weight 98.88 kg Trish Kupiec OCCUPATIONAL THERAPY SUPERVISOR.SHEET ROCK INSTALLATION HELPER Work Phone: [facility] 05-06-2022 11:05-0400 Heart rate 63 /min Trish Kupiec OCCUPATIONAL THERAPY SUPERVISOR.SHEET ROCK INSTALLATION HELPER Work Phone: [facility] 05-06-2022 11:05-0400 SaO2% (BldA) [Mass fraction] 96 % Trish Kupiec OCCUPATIONAL THERAPY SUPERVISOR.SHEET ROCK INSTALLATION HELPER Work Phone: [facility] 12-30-2021 15:16-0400 Body weight 95.71 kg Trishmarty Pinzoniec OCCUPATIONAL THERAPY SUPERVISOR.SHEET ROCK INSTALLATION HELPER Work Phone: [facility] 12-30-2021 15:16-0400 Diastolic blood pressure 79 mm[Hg] Trish Kupiec OCCUPATIONAL THERAPY SUPERVISOR.SHEET ROCK INSTALLATION HELPER Work Phone: [facility] 12-30-2021 15:16-0400 Heart rate 74 /min Trish Kupiec OCCUPATIONAL THERAPY SUPERVISOR.SHEET ROCK INSTALLATION HELPER Work Phone: [facility] 12-30-2021 15:16-0400 SaO2% (BldA) [Mass fraction] 98 % Trish Kupiec OCCUPATIONAL THERAPY SUPERVISOR.SHEET ROCK INSTALLATION HELPER Work Phone: [facility] 12-30-2021 15:16-0400 Systolic blood pressure 155 mm[Hg] Trish Kupiec OCCUPATIONAL THERAPY SUPERVISOR.SHEET ROCK INSTALLATION HELPER Work Phone: [facility] Encounters Encounter Date Encounter Type Care Provider Facility Start: 05-15-2023 Refill Trish Kupie c OCCUPATIONAL THERAPY SUPERVISOR.SHEET ROCK INSTALLATION HELPER Work Phone: Endocrinology Procedures Date Procedure Procedure Detail Performing Clinician Start: 09-06-2022 Hemoglobin A1c/Hemoglobin.total in Blood Trish Kupiec OCCUPATIONAL THERAPY SUPERVISOR.SHEET ROCK INSTALLATION HELPER Work Phone: Start: 05-06-2022 Hemoglobin A1c/Hemoglobin.total in Blood Trish Kupiec OCCUPATIONAL THERAPY SUPERVISOR.SHEET ROCK INSTALLATION HELPER Work Phone: Start: 12-30-2021 Hemoglobin A1c/Hemoglobin.total in Blood Trish Kupiec OCCUPATIONAL THERAPY SUPERVISOR.SHEET ROCK INSTALLATION HELPER Work Phone: Start: 07-14-2020 [object Object] JAMIL PRITCHARD Plan of Treatment Date Care Activity Detail Author Start: 10-06-2023 Hepatitis B screening URINE ALBUMIN:CREATININE RATIO [facility] Start: 09-08-2023 Hepatitis B screening URINE ALBUMIN:CREATININE RATIO [facility] Start: 09-08-2023 Hepatitis B surface antibody level LDL CHOLESTEROL [facility] Start: 05-24-2023 Hepatitis C antibody, confirmatory test DILATED RETINAL EXAM [facility] Start: 04-21-2023 Influenza vaccination Influenza Vaccine (#1) [facility] Start: 01-03-2023 Hemoglobin A1c/Hemoglobin.total in Blood HBA1C [facility] Start: 12-05-2022 Hemoglobin A1c/Hemoglobin.total in Blood HBA1C [facility] Start: 11-03-2022 Hemoglobin A1c/Hemoglobin.total in Blood HBA1C [facility] Start: 09-08-2022 End: 11-08-2022 ALBUMIN/CREAT RATIO RND UR ALBUMIN/CREAT RATIO RND UR Lab Routine Type 2 diabetes mellitus with diabetic polyneuropathy, without long-term current use of insulin (HCC) Expected: 09/08/2022 (Approximate), Expires: 11/08/2022 [facility] Work Phone: Immunizations Immunization Date Immunization Notes Care Provider Fa cili 07-06-2022 influenza virus vacc ine, unspecified formulation Trish Bae OCCUPATIONAL THERAPY SUPERVISOR.SHEET ROCK INSTALLATION HELPER Work Phone: [facility] Payers Date Payer Category Payer Private Health Insurance [id number] 2015 Private Health Insurance HUMANA HUMANA MEDICARE SUPPLEMENT [id number] 2015-Present [phone] [address] [address] [place] [address] Indemnity [id number] 2015 Private Health Insurance HUMANA HUMANA MEDICARE SUPPLEMENT [id number] 2015-Present [phone] [address] [address] [place] [address] Indemnity [id number] 2008 Medicare [id number] 2008 Medicare MEDICARE MEDICAR E A AND B [id number] 2008-Present [phone] [place] [address] Medicare [id number] 2008 Medicare MEDICARE MEDICAR E A AND B [id number] 2008-Present [phone] [place] [address] Medicare [id number] 1945 Unknown [id number] 1945 Unknown [id number] Medicare [id number] Social History Date Type Detail Facility Start: 02-19-2021 End: 05-06-2022 Tobacco smoking status NHIS Never smoked tobacco [facility] Start: 10-01-2021 End: 09-06-2022 Alcohol intake Current non-drinker of alcohol (finding) [facility] Start: 1945 Sex Assigned At Not on file [facility] Start: 12-20-2021 End: 05-06-2022 Exposure to SARS-CoV-2 (event) Not sure [facility] Start: 02-19-2021 End: 05-06-2022 Tobacco use and exposure Smokeless tobacco non-user [facility] Start: 09-06-2022 End: 01-06-2023 History of Social function [facility] Start: 09-06-2022 End: 01-06-2023 Tobacco use panel [facility] National Score (1-10 0), lower number is lower risk 41 [facility] Medical Equipment Procedure Code Equipment Code Equipment Origin al Text Equipment Identifier Dates Start: 10-19-2021 End: 06-07-2022 Clinical Notes 11-25-2021 to 05-15-2023 Telephone Encounter - Jigna Graves Ma - 05/15/2023 1:31 PM EDTTelephone Encounter - Trish Bae APRN.CNP - 09/15/2022 4:01 PM ESTTelephone Encounter - Yessica Wm - 09/15/2022 3:04 PM EST Note Date & Type Note Facility 05-15-2023 Miscellaneous Notes Pharmacy requesting refills as follows: Requested Prescriptions Pending Prescriptions Disp Refills Insulin [place], Disposable, (BD ULTRAFINE III MINI PEN) 31 gauge x 3/16 [Pharmacy Med Name: BD UF MINI PEN NEEDLE [id number]] 400 Each 3 Sig: USE FOR INSULIN PEN INJECTIONS 4 NEEDLES DAILY, DIRECTED. DX:E11.42 Please review and advise. Jigna Graves Ma\ documented in this encounter [facility] 09-15-2022 Miscellaneous Notes Responded to 09/12/22 message. Will send another response regarding steroids and insulin. Thank you Pt calling in He has been placed on steroids due to an asthma flare up Asking if he needs to go on insulin to combat the possible glucose increase , as he is only on oral meds He is also asking about his MyChart message from 09/12/22 Patient asked for a call back from a nurse regarding recent refill request, and also to inform he was put on steroids bc of a flare up and wanted to talk about that and his insulin. documented in this encounter [facility] 09-09-2022 Miscellaneous Notes Mailed 09/09/22 CLOSED Please mail rx for jessie to patient. Thank you documented in this encounter [facility] 09-07-2022 Miscellaneous Notes Sent, Transmission ok CLOSED Please send todays office note to his PCP--Dr. Selena Parks. Thank you documented in this encounter [facility] 09-06-2022 Note HNO ID: [id number] Author: Trish Bae APRN.CNP Service: ? Author Type: Nurse Practitioner Type: Progress Notes Filed: 09/06/2022 11:52 AM Note Text: Reason for Consultation: DM Type 2 Referring Physician: SELF HISTORY OF PRESENT ILLNESS; Mr. Peters is a 76 year old male presenting for follow up regarding DM Type 2. He was initially diagnosed with diabetes about age 60. He does have a family history of diabetes mellitus in his mothers side of family LV 05/06/22 A1C today is 8.2 Attended DM education on 02/19/21 History in addition to diabetes: HLD, peripheral neuropathy, diverticulosis, obesity, covid 19 infection. He recently sent in BG readings and we added basaglar but he stopped it after 2 days stating it gave him diarrhea. He then resumed glipizide XL in addition to fiasp. He was advised to only use fiasp and to resume the original doses he was on. He ultimately resumed the glipizide in May and stopped all insulin Had covid before . Eating more sugar during the holiday. His current diabetes regimen is: Glipizide XL 5 mg 2 tabs breakfast and 1 tab dinner Previous DM medication: Metformin --GI upset rybelsus--GI upset Glimepiride fiasp Basaglar--diarrhea Regarding symptoms of hyperglycemia, he is not experiencing any symptoms such as polyuria, polydipsia, nocturia or rapid weight loss or blurry vision. Exercise: ADL's Kiran is checking his blood glucose 1 per day He did not bring a logbook today for review: FBS 120-160 Hypoglycemia frequency: Hypoglycemia awareness: Yes Overall, the patient has no acute complaints at this time. PAST MEDICAL HISTORY Diagnosis Date Acute gastritis without mention of hemorrhage Benign neoplasm of colon Diverticulosis of colon (without mention of hemorrhage) DM (diabetes mellitus) (HCC) Heart abnormality stiff left ventricle Hyperlipidemia Lead exposure Personal history of colonic polyps PAST SURGICAL HISTORY Procedure Laterality Date APPENDECTOMY COLONOSCOPY FLX DX W/COLLJ SPEC WHEN PFRMD 2003 Colonoscopy COLONOSCOPY FLX DX W/COLLJ SPEC WHEN PFRMD 07/15/09 COLONOSCOPY FLX DX W/COLLJ SPEC WHEN PFRMD 04/28/2014 Colonoscopy COLONOSCOPY FLX DX W/COLLJ SPEC WHEN PFRMD 07/08/2019 Colonoscopy EGD TRANSORAL BIOPSY SINGLE/MULTIPLE 07/15/09 LAPAROSCOPY SURG CHOLECYSTECTOMY Cholecystectomy, lap FAMILY HISTORY Problem Relation Age of Onset Coronary Artery Disease Mother Diabetes Mother Social History Tobacco Use Smoking status: Never Smokeless tobacco: Never Substance Use Topics Alcohol use: No Current Outpatient Medications Medication Sig Dispense Refill glipiZIDE (GLUCOTROL XL) 5 mg 24 hr tablet Take two tabs at breakfast and 1 tab at dinner 270 tablet 1 blood sugar diagnostic (TRUE METRIX GLUCOSE TEST STRIP) test strip Use as instructed to test glucose 3 times daily. DX:E11.42, insulin dependent. 300 Strip 1 doxazosin (CARDURA) 2 mg tablet Take 2 mg by mouth once daily. budesonide (PULMICORT FLEXHALER) 180 mcg/actuation aepb Inhale 2 Puffs as instructed twice daily. metoprolol succinate XL, long acting, 25 mg 24 hr tablet Take 25 mg by mouth once daily. simvastatin 20 mg tablet Take 20 mg by mouth daily at bedtime. aspirin, enteric coated (ASPIRIN, ENTERIC COATED) 81 mg EC tablet Take 81 mg by mouth once daily. SITagliptin phosphate (JANUVIA) 100 mg tablet Take 1 tablet by mouth once daily. 30 tablet 11 Lancets lancets Use as instructed to test glucose 3 times daily. DX: E11.42, insulin dependent.; please dispense formulary preferred. (Patient not taking: No sig reported) 300 Each 1 No current facility-administered medications for this visit. Allergies As of Date: 09/06/2022 (No Known Allergies) Fully Assessed 09/06/2022 REVIEW OF SYSTEMS: Review of Systems Respiratory: Negative for difficulty breathing. Cardiovascular: Negative for chest pain. Gastrointestinal: Negative for nausea, vomiting, diarrhea and constipation. PHYSICAL EXAM: BP 150/70 Pulse 63 Ht 177.8 cm (5' 10 ) Wt 97.5 kg (215 lb) SpO2 97% BMI 30.85 kg/m2 Physical Exam Constitutional: Appearance: Normal appearance. He is obese. Cardiovascular: Rate and Rhythm: Normal rate and regular rhythm. Pulmonary: Effort: Pulmonary effort is normal. Breath sounds: Normal breath sounds. Skin: General: Skin is warm and dry. Neurological: Mental Status: He is alert and oriented to person, place, and time. Psychiatric: Mood and Affect: Mood normal. Behavior: Behavior normal. DATA: Creatinine Date Value Ref Range Status 05/19/2021 1.09 0.73 - 1.22 mg/dL Final Hemoglobin A1C (%) Date Value 05/19/2021 6.7 Hemoglobin A1C (POCT) (%) Date Value 09/06/2022 8.2 ) No components found for: URINEALBUMIN Cholesterol, Total (mg/dL) Date Value 05/19/2021 146 HDL Cholesterol (mg/dL) Date Value 05/19/2021 38 LDL Cholesterol (mg/dL) Date Value 05/19/2021 84 (more content not included)... [facility] 09-06-2022 Instructions Trish Bae APRN.MATT - 09/06/2022 11:39 AM EST Continue glipizide XL 5 mg taking: Breakfast 2 tabs Dinner 1 tab 2. Start januvia 100 mg daily. 3.notify me if glucose is dropping under 80's. 4. Follow up in 4 months 5. Have labs done fasting this week. Trish Bae, MSN, OCCUPATIONAL THERAPY SUPERVISOR, BULLET CHARGING MACHINE OPERATOR-C, CDE Endocrinology [facility] Building/[address], [address] [place] [address] Fax: documented in this encounter [facility] 09-06-2022 History of Presen t illness Narrative Reason for Consultation: DM Type 2 Referring Physician: SELF HISTORY OF PRESENT ILLNESS; Mr. Peters is a 76 year old male presenting for follow up regarding DM Type 2. He was initially diagnosed with diabetes about age 60. He does have a family history of diabetes mellitus in his mothers side of family LV 05/06/22 A1C today is 8.2 Attended DM education on 02/19/21 History in addition to diabetes: HLD, peripheral neuropathy, diverticulosis, obesity, covid 19 infection. He recently sent in BG readings and we added basaglar but he stopped it after 2 days stating it gave him diarrhea. He then resumed glipizide XL in addition to fiasp. He was advised to only use fiasp and to resume the original doses he was on. He ultimately resumed the glipizide in May and stopped all insulin Had covid before xm. Eating more sugar during the holiday. His current diabetes regimen is: Glipizide XL 5 mg 2 tabs breakfast and 1 tab dinner Previous DM medication: Metformin --GI upset rybelsus--GI upset Glimepiride fiasp Basaglar--diarrhea Regarding symptoms of hyperglycemia, he is not experiencing any symptoms such as polyuria, polydipsia, nocturia or rapid weight loss or blurry vision. Exercise: MIGUELITO'rubén Mtz is checking his blood glucose 1 per day He did not bring a logbook today for review: FBS 120-160 Hypoglycemia frequency: Hypoglycemia awareness: Yes Overall, the patient has no acute complaints at this time. PAST MEDICAL HISTORY Diagnosis Date Acute gastritis without mention of hemorrhage Benign neoplasm of colon Diverticulosis of colon (without mention of hemorrhage) DM (diabetes mellitus) (HCC) Heart abnormality stiff left ventricle Hyperlipidemia Lead exposure Personal history of colonic polyps PAST SURGICAL HISTORY Procedure Laterality Date APPENDECTOMY COLONOSCOPY FLX DX W/COLLJ SPEC WHEN PFRMD 2003 Colonoscopy COLONOSCOPY FLX DX W/COLLJ SPEC WHEN PFRMD 07/15/09 COLONOSCOPY FLX DX W/COLLJ SPEC WHEN PFRMD 04/28/2014 Colonoscopy COLONOSCOPY FLX DX W/COLLJ SPEC WHEN PFRMD 07/08/2019 Colonoscopy EGD TRANSORAL BIOPSY SINGLE/MULTIPLE 07/15/09 LAPAROSCOPY SURG CHOLECYSTECTOMY Cholecystectomy, lap FAMILY HISTORY Problem Relation Age of Onset Coronary Artery Disease Mother Diabetes Mother Social History Tobacco Use Smoking status: Never Smokeless tobacco: Never Substance Use Topics Alcohol use: No Current Outpatient Medications Medication Sig Dispense Refill glipiZIDE (GLUCOTROL XL) 5 mg 24 hr tablet Take two tabs at breakfast and 1 tab at dinner 270 tablet 1 blood sugar diagnostic (TRUE METRIX GLUCOSE TEST STRIP) test strip Use as instructed to test glucose 3 times daily. DX:E11.42, insulin dependent. 300 Strip 1 doxazosin (CARDURA) 2 mg tablet Take 2 mg by mouth once daily. budesonide (PULMICORT FLEXHALER) 180 mcg/actuation aepb Inhale 2 Puffs as instructed twice daily. metoprolol succinate XL, long acting, 25 mg 24 hr tablet Take 25 mg by mouth once daily. simvastatin 20 mg tablet Take 20 mg by mouth daily at bedtime. aspirin, enteric coated (ASPIRIN, ENTERIC COATED) 81 mg EC tablet Take 81 mg by mouth once daily. SITagliptin phosphate (JANUVIA) 100 mg tablet Take 1 tablet by mouth once daily. 30 tablet 11 Lancets lancets Use as instructed to test glucose 3 times daily. DX: E11.42, insulin dependent.; please dispense formulary preferred. (Patient not taking: No sig reported) 300 Each 1 No current facility-administered medications for this visit. Allergies As of Date: 09/06/2022 (No Known Allergies) Fully Assessed 09/06/2022 REVIEW OF SYSTEMS: Review of Systems Respiratory: Negative for difficulty breathing. Cardiovascular: Negative for chest pain. Gastrointestinal: Negative for nausea, vomiting, diarrhea and constipation. PHYSICAL EXAM: BP 150/70 Pulse 63 Ht 177.8 cm (5' 10 ) Wt 97.5 kg (215 lb) SpO2 97% BMI 30.85 kg/m2 Physical Exam Constitutional: Appearance: Normal appearance. He is obese. Cardiovascular: Rate and Rhythm: Normal rate and regular rhythm. Pulmonary: Effort: Pulmonary effort is normal. Breath sounds: Normal breath sounds. Skin: General: Skin is warm and dry. Neurological: Mental Status: He is alert and oriented to person, place, and time. Psychiatric: Mood and Affect: Mood normal. Behavior: Behavior normal. DATA: Creatinine Date Value Ref Range Status 05/19/2021 1.09 0.73 - 1.22 mg/dL Final Hemoglobin A1C (%) Date Value 05/19/2021 6.7 Hemoglobin A1C (POCT) (%) Date Value 09/06/2022 8.2 ) No components found for: URINEALBUMIN Cholesterol, Total (mg/dL) Date Value 05/19/2021 146 HDL Cholesterol (mg/dL) Date Value 05/19/2021 38 LDL Cholesterol (mg/dL) Date Value 05/19/2021 84 Triglyceride (mg/dL) Date Value 05/19/2021 120 IMPRESSION: Mr. Peters is a 76 year old male here for evaluation of DM Type 2 complicated by hyperlipidemia and peripheral neuropathy, obesity. RECOMMENDATIONS: (E11.42) Type 2 diabetes mellitus with diabetic polyneuropathy, without long-term current use of insulin (HCC) (primary encounter diagnosis) Comment: Glycemic control is trending higher. Agreeable to add DPP4. Plan: HEMOGLOBIN A1C (POC), SITagliptin phosphate (JANUVIA) 100 mg tablet, COMP METABOLIC PANEL, LIPID PANEL BASIC, ALBUMIN/CREAT RATIO RND UR, TSH BLD Continue glipizide XL 5 mg taking: Breakfast 2 tabs Dinner 1 tab Start januvia 100 mg daily. notify me if glucose is dropping under 80's. Follow up in 4 months Have labs done fasting this week. (E78.2) Mixed hyperlipidemia Comment: taking simvastatin Plan: Managed per PCP (E66.9, Z68.30) Class 1 obesity with serious comorbidity and body mass index (BMI) of 30.0 to 30.9 in adult, unspecified obesity type Comment: Body mass index is 30.85 kg/m . Plan: Encouraged increase dietary and exercise efforts as able Medical Decision Making: Level: 4 - Moderate Trish Bae, MSN, OCCUPATIONAL THERAPY SUPERVISOR, BULLET CHARGING MACHINE OPERATOR-C, CDE Endocrinology [facility] Medical Office [facility]/[place] [address] Fax: documented in this encounter [facility] 06-07-2022 Miscellaneous Notes Please review. documented in this encounter [facility] 06-06-2022 Miscellaneous Notes Please review. documented in this encounter [facility] 05-31-2022 Miscellaneous Notes Reviewed. No retinopathy noted Received eye exam from [facility]. HM Updated. documented in this encounter [facility] 05-24-2022 Miscellaneous Notes Please review this message on behalf of provider who is out of the office at this time. Thank you documented in this encounter [facility] 05-06-2022 Note HNO ID: [id number] Author: Trish Bae APRN.MATT Service: ? Author Type: Nurse Practitioner Type: Progress Notes Filed: 05/06/2022 11:33 AM Note Text: Reason for Consultation: DM Type 2 Referring Physician: SELF HISTORY OF PRESENT ILLNESS; Mr. Peters is a 76 year old male presenting for follow up regarding DM Type 2. He was initially diagnosed with diabetes about age 60. He does have a family history of diabetes mellitus in his mothers side of family LV 12/30/21 A1C today is 7.4 Attended DM education on 02/19/21 History in addition to diabetes: HLD, peripheral neuropathy, diverticulosis Exacerbating factors: obesity He recently sent in BG readings and we added basaglar but he stopped it after 2 days stating it gave him diarrhea. He then resumed glipizide XL in addition to fiasp. He was advised to only use fiasp and to resume the original doses he was on. His current diabetes regimen is: Fiasp: breakfast 6 units, lunch 12 units, dinner 8 units Plus ok to add additional fiasp at meals if sugars is over 150 per the scale below. < 150 Add 0 units 151-200 Add 1 unit 201-250 Add 2 units 251-300 Add 3 units 301-350 Add 4 units 351-400 Add 5 units >400 Add 5 units Previous DM medication: Metformin --GI upset rybelsus--GI upset Glimepiride Glipizide XL Regarding symptoms of hyperglycemia, he is not experiencing any symptoms such as polyuria, polydipsia, nocturia or rapid weight loss or blurry vision. Exercise: ADL's *eating 3 meals per day Kiran is checking his blood glucose 3x per day He did bring a logbook today for review: FBS 159, 180, 153 acL 172, 199 acS 119, 90 Hypoglycemia frequency: denies Hypoglycemia awareness: Yes Overall, the patient has no acute complaints at this time. PAST MEDICAL HISTORY Diagnosis Date Acute gastritis without mention of hemorrhage Benign neoplasm of colon Diverticulosis of colon (without mention of hemorrhage) DM (diabetes mellitus) (HCC) Heart abnormality stiff left ventricle Hyperlipidemia Lead exposure Personal history of colonic polyps PAST SURGICAL HISTORY Procedure Laterality Date APPENDECTOMY COLONOSCOPY FLX DX W/COLLJ SPEC WHEN PFRMD 2003 Colonoscopy COLONOSCOPY FLX DX W/COLLJ SPEC WHEN PFRMD 07/15/09 COLONOSCOPY FLX DX W/COLLJ SPEC WHEN PFRMD 04/28/2014 Colonoscopy COLONOSCOPY FLX DX W/COLLJ SPEC WHEN PFRMD 07/08/2019 Colonoscopy EGD TRANSORAL BIOPSY SINGLE/MULTIPLE 07/15/09 LAPAROSCOPY SURG CHOLECYSTECTOMY Cholecystectomy, lap FAMILY HISTORY Problem Relation Age of Onset Coronary Artery Disease Mother Diabetes Mother Social History Tobacco Use Smoking status: Never Smokeless tobacco: Never Substance Use Topics Alcohol use: No Current Outpatient Medications Medication Sig Dispense Refill insulin aspart, niacinamide, (FIASP FLEXTOUCH U-100 INSULIN) 100 unit/mL (3 mL) pen Inject subcutaneously 5 Units at breakfast 8 units lunch, 5 units dinner plus SS up to 30 units daily (Patient taking differently: Inject subcutaneously 5 Units at breakfast 12 units lunch, 8 units dinner plus SS up to 30 units daily) 15 mL 5 blood sugar diagnostic (TRUE METRIX GLUCOSE TEST STRIP) test strip Use as instructed to test glucose 3 times daily. DX:E11.42, insulin dependent. 300 Strip 1 doxazosin (CARDURA) 2 mg tablet Take 2 mg by mouth once daily. budesonide (PULMICORT FLEXHALER) 180 mcg/actuation aepb Inhale 2 Puffs as instructed twice daily. metoprolol succinate XL, long acting, 25 mg 24 hr tablet Take 25 mg by mouth once daily. simvastatin 20 mg tablet Take 20 mg by mouth daily at bedtime. aspirin, enteric coated (ASPIRIN, ENTERIC COATED) 81 mg EC tablet Take 81 mg by mouth once daily. Insulin Windsor, Disposable, (BD ULTRAFINE III MINI PEN) 31 gauge x 11/03 Use for insulin pen injections 4 needles daily, as directed. DX:E11.42 (Patient not taking: Reported on 05/06/2022) 400 Each 3 Lancets lancets Use as instructed to test glucose 3 times daily. DX: E11.42, insulin dependent.; please dispense formulary preferred. (Patient not taking: Reported on 05/06/2022) 300 Each 1 No current facility-administered medications for this visit. Allergies As of Date: 05/06/2022 (No Known Allergies) Fully Assessed 05/06/2022 REVIEW OF SYSTEMS: Review of Systems Respiratory: Negative for difficulty breathing. Cardiovascular: Negative for chest pain. Gastrointestinal: Negative for nausea, vomiting, diarrhea and constipation. PHYSICAL EXAM: BP 157/79 Pulse 63 Ht 177.8 cm (5' 10 ) Wt 98.9 kg (218 lb) SpO2 96% BMI 31.28 kg/m2 Physical Exam Constitutional: Appearance: Normal appearance. He is obese. Cardiovascular: Rate and Rhythm: Normal rate and regular rhythm. Pulmonary: Effort: Pulmonary effort is normal. Breath sounds: Normal breath sounds. Skin: General: Skin is warm and dry. Neurological: Mental Status: He is alert and oriented to person, place, an (more content not included)... [facility] 05-06-2022 Instructions Trish Bae APRN.MATT - 05/06/2022 11:18 AM EDT Fiasp Breakfast 7 units Lunch 12 units Dinner 8 units 2. Check sugars 3-4x per day. Also include some readings at bedtime. 3. Follow up in 4 months Trish Bae, MSN, OCCUPATIONAL THERAPY SUPERVISOR, BULLET CHARGING MACHINE OPERATOR-C, CDE Endocrinology [facility] Medical Office [facility]/[address] [place] [address] Fax: documented in this encounter [facility] 05-06-2022 History of Presen t illness Narrative Reason for Consultation: DM Type 2 Referring Physician: SELF HISTORY OF PRESENT ILLNESS; Mr. Peters is a 76 year old male presenting for follow up regarding DM Type 2. He was initially diagnosed with diabetes about age 60. He does have a family history of diabetes mellitus in his mothers side of family LV 12/30/21 A1C today is 7.4 Attended DM education on 02/19/21 History in addition to diabetes: HLD, peripheral neuropathy, diverticulosis Exacerbating factors: obesity He recently sent in BG readings and we added basaglar but he stopped it after 2 days stating it gave him diarrhea. He then resumed glipizide XL in addition to fiasp. He was advised to only use fiasp and to resume the original doses he was on. His current diabetes regimen is: Fiasp: breakfast 6 units, lunch 12 units, dinner 8 units Plus ok to add additional fiasp at meals if sugars is over 150 per the scale below. < 150 Add 0 units 151-200 Add 1 unit 201-250 Add 2 units 251-300 Add 3 units 301-350 Add 4 units 351-400 Add 5 units >400 Add 5 units Previous DM medication: Metformin --GI upset rybelsus--GI upset Glimepiride Glipizide XL Regarding symptoms of hyperglycemia, he is not experiencing any symptoms such as polyuria, polydipsia, nocturia or rapid weight loss or blurry vision. Exercise: ADL's *eating 3 meals per day Kiran is checking his blood glucose 3x per day He did bring a logbook today for review: FBS 159, 180, 153 acL 172, 199 acS 119, 90 Hypoglycemia frequency: denies Hypoglycemia awareness: Yes Overall, the patient has no acute complaints at this time. PAST MEDICAL HISTORY Diagnosis Date Acute gastritis without mention of hemorrhage Benign neoplasm of colon Diverticulosis of colon (without mention of hemorrhage) DM (diabetes mellitus) (HCC) Heart abnormality stiff left ventricle Hyperlipidemia Lead exposure Personal history of colonic polyps PAST SURGICAL HISTORY Procedure Laterality Date APPENDECTOMY COLONOSCOPY FLX DX W/COLLJ SPEC WHEN PFRMD 2003 Colonoscopy COLONOSCOPY FLX DX W/COLLJ SPEC WHEN PFRMD 07/15/09 COLONOSCOPY FLX DX W/COLLJ SPEC WHEN PFRMD 04/28/2014 Colonoscopy COLONOSCOPY FLX DX W/COLLJ SPEC WHEN PFRMD 07/08/2019 Colonoscopy EGD TRANSORAL BIOPSY SINGLE/MULTIPLE 07/15/09 LAPAROSCOPY SURG CHOLECYSTECTOMY Cholecystectomy, lap FAMILY HISTORY Problem Relation Age of Onset Coronary Artery Disease Mother Diabetes Mother Social History Tobacco Use Smoking status: Never Smokeless tobacco: Never Substance Use Topics Alcohol use: No Current Outpatient Medications Medication Sig Dispense Refill insulin aspart, niacinamide, (FIASP FLEXTOUCH U-100 INSULIN) 100 unit/mL (3 mL) pen Inject subcutaneously 5 Units at breakfast 8 units lunch, 5 units dinner plus SS up to 30 units daily (Patient taking differently: Inject subcutaneously 5 Units at breakfast 12 units lunch, 8 units dinner plus SS up to 30 units daily) 15 mL 5 blood sugar diagnostic (TRUE METRIX GLUCOSE TEST STRIP) test strip Use as instructed to test glucose 3 times daily. DX:E11.42, insulin dependent. 300 Strip 1 doxazosin (CARDURA) 2 mg tablet Take 2 mg by mouth once daily. budesonide (PULMICORT FLEXHALER) 180 mcg/actuation aepb Inhale 2 Puffs as instructed twice daily. metoprolol succinate XL, long acting, 25 mg 24 hr tablet Take 25 mg by mouth once daily. simvastatin 20 mg tablet Take 20 mg by mouth daily at bedtime. aspirin, enteric coated (ASPIRIN, ENTERIC COATED) 81 mg EC tablet Take 81 mg by mouth once daily. Insulin Windsor, Disposable, (BD ULTRAFINE III MINI PEN) 31 gauge x 3/16 Use for insulin pen injections 4 needles daily, as directed. DX:E11.42 (Patient not taking: Reported on 05/06/2022) 400 Each 3 Lancets lancets Use as instructed to test glucose 3 times daily. DX: E11.42, insulin dependent.; please dispense formulary preferred. (Patient not taking: Reported on 05/06/2022) 300 Each 1 No current facility-administered medications for this visit. Allergies As of Date: 05/06/2022 (No Known Allergies) Fully Assessed 05/06/2022 REVIEW OF SYSTEMS: Review of Systems Respiratory: Negative for difficulty breathing. Cardiovascular: Negative for chest pain. Gastrointestinal: Negative for nausea, vomiting, diarrhea and constipation. PHYSICAL EXAM: BP 157/79 Pulse 63 Ht 177.8 cm (5' 10 ) Wt 98.9 kg (218 lb) SpO2 96% BMI 31.28 kg/m2 Physical Exam Constitutional: Appearance: Normal appearance. He is obese. Cardiovascular: Rate and Rhythm: Normal rate and regular rhythm. Pulmonary: Effort: Pulmonary effort is normal. Breath sounds: Normal breath sounds. Skin: General: Skin is warm and dry. Neurological: Mental Status: He is alert and oriented to person, place, and time. Psychiatric: Mood and Affect: Mood normal. Behavior: Behavior normal. DATA: Creatinine Date Value Ref Range Status 05/19/2021 1.09 0.73 - 1.22 mg/dL Final Hemoglobin A1C (%) Date Value 05/19/2021 6.7 Hemoglobin A1C (POCT) (%) Date Value 12/30/2021 7.4 ) No components found for: URINEALBUMIN Cholesterol, Total (mg/dL) Date Value 05/19/2021 146 HDL Cholesterol (mg/dL) Date Value 05/19/2021 38 LDL Cholesterol (mg/dL) Date Value 05/19/2021 84 Triglyceride (mg/dL) Date Value 05/19/2021 120 IMPRESSION: Mr. Peters is a 76 year old male here for evaluation of DM Type 2 complicated by hyperlipidemia and peripheral neuropathy, obesity. RECOMMENDATIONS: (E11.42) Type 2 diabetes mellitus with diabetic polyneuropathy, without long-term current use of insulin ([facility]) (primary encounter diagnosis) Comment: glycemic control is reasonable given his age and risk of hypoglycemia. He does not want to use basal insulin. FBG is not unreasonable Plan: insulin aspart, niacinamide, (FIASP FLEXTOUCH U-100 INSULIN) 100 unit/mL (3 mL) pen, HEMOGLOBIN A1C (POC) Fiasp Breakfast 7 units Lunch 12 units Dinner 8 units Check sugars 3-4x per day. Also include some readings at bedtime. Follow up in 4 months (E78.2) Mixed hyperlipidemia Comment: taking simvastatin Plan: Managed per PCP (E66.9, Z68.30) Class 1 obesity with serious comorbidity and body mass index (BMI) of 30.0 to 30.9 in adult, unspecified obesity type Comment: Body mass index is 31.28 kg/m . Plan: Encouraged increase dietary and exercise efforts as able I spent a total of 20 minutes on the date of the service which included preparing to see the patient, [id number] patient care, completing clinical documentation, obtaining and/or reviewing separately obtained history, performing a medically appropriate examination, counseling and educating the patient/family/caregiver, ordering medications, tests, or procedures, and communicating results to the patient/family/caregiver. Trish Bae, MSN, OCCUPATIONAL THERAPY SUPERVISOR, BULLET CHARGING MACHINE OPERATOR-C, CDE Endocrinology [facility] Medical Office [facility]/[address], [address] [place], [place] [address] Fax: documented in this encounter [facility] 04-01-2022 Miscellaneous Notes Please review. documented in this encounter [facility] 12-30-2021 Note HNO ID: [id number] Author: Trish Bae APRN.MATT Service: ? Author Type: Nurse Practitioner Type: Progress Notes Filed: 12/30/2021 3:52 PM Note Text: Reason for Consultation: DM Type 2 Referring Physician: SELF HISTORY OF PRESENT ILLNESS; Mr. Peters is a 76 year old male presenting for follow up regarding DM Type 2. He was initially diagnosed with diabetes about age 60. He does have a family history of diabetes mellitus in his mothers side of family LV 10/01/21 A1C today is 7.4 Attended DM education on 02/19/21 Had covid and had two rounds of prednisone. Now off of steroids History in addition to diabetes: HLD, peripheral neuropathy, diverticulosis Exacerbating factors: obesity His current diabetes regimen is: Glipizide XL 5 mg taking 2 tabs one tab BID --taking 2 breakfast and only 1 at dinner most night. fiasp 2 units TID plus SS--started when prescribed prednisone for lunch issues. --taking 3 at breakfast, 8-12 units lunch and 3 units dinner < 150 Add 0 units 151-200 Add 1 unit 201-250 Add 2 units 251-300 Add 3 units 301-350 Add 4 units 351-400 Add 5 units >400 Add 5 units Previous DM medication: Metformin --GI upset rybelsus--GI upset glimepiride Regarding symptoms of hyperglycemia, he is not experiencing any symptoms such as polyuria, polydipsia, nocturia or rapid weight loss or blurry vision. Exercise: ADL's *eating 3 meals per day Kiran is checking his blood glucose 2 x daily in AM He did bring a logbook today for review: FBS 96, 130 acS 150-160 Hypoglycemia frequency: denies Hypoglycemia awareness: Yes Overall, the patient has no acute complaints at this time. PAST MEDICAL HISTORY Diagnosis Date - Acute gastritis without mention of hemorrhage - Benign neoplasm of colon - Diverticulosis of colon (without mention of hemorrhage) - DM (diabetes mellitus) (HCC) - Heart abnormality stiff left ventricle - Hyperlipidemia - Lead exposure - Personal history of colonic polyps PAST SURGICAL HISTORY Procedure Laterality Date - APPENDECTOMY - COLONOSCOPY FLX DX W/COLLJ SPEC WHEN PFRMD 2003 Colonoscopy - COLONOSCOPY FLX DX W/COLLJ SPEC WHEN PFRMD 07/15/09 - COLONOSCOPY FLX DX W/COLLJ SPEC WHEN PFRMD 04/28/2014 Colonoscopy - COLONOSCOPY FLX DX W/COLLJ SPEC WHEN PFRMD 07/08/2019 Colonoscopy - EGD TRANSORAL BIOPSY SINGLE/MULTIPLE 07/15/09 - LAPAROSCOPY SURG CHOLECYSTECTOMY Cholecystectomy, lap FAMILY HISTORY Problem Relation Age of Onset - Coronary Artery Disease Mother - Diabetes Mother Social History Tobacco Use - Smoking status: Never Smoker - Smokeless tobacco: Never Used Substance Use Topics - Alcohol use: No - Drug use: Not on file Current Outpatient Medications Medication Sig Dispense Refill - Insulin Windsor, Disposable, (BD ULTRAFINE III MINI PEN) 31 gauge x 3/16 Use for insulin pen injections 3 times daily, as directed. DX:E11.42 300 Each 3 - blood sugar diagnostic (TRUE METRIX GLUCOSE TEST STRIP) test strip Use as instructed to test glucose 3 times daily. DX:E11.42, insulin dependent. 300 Strip 1 - glipiZIDE (GLUCOTROL XL) 5 mg 24 hr tablet Take 2 tabs at breakfast and 2 tab at dinner 360 tablet 1 - Lancets lancets Use as instructed to test glucose 3 times daily. DX: E11.42, insulin dependent.; please dispense formulary preferred. 300 Each 1 - insulin aspart, niacinamide, (FIASP FLEXTOUCH U-100 INSULIN) 100 unit/mL (3 mL) pen Inject subcutaneously 2 units TID meals plus SS up to 20 units daily 15 mL 4 - doxazosin (CARDURA) 2 mg tablet Take 2 mg by mouth once daily. - budesonide (PULMICORT FLEXHALER) 180 mcg/actuation aepb Inhale 2 Puffs as instructed twice daily. - metoprolol succinate XL, long acting, 25 mg 24 hr tablet Take 25 mg by mouth once daily. - simvastatin 20 mg tablet Take 20 mg by mouth daily at bedtime. - aspirin, enteric coated (ASPIRIN LOW DOSE) 81 mg EC tablet Take 81 mg by mouth once daily. No current facility-administered medications for this visit. Allergies As of Date: 12/30/2021 (No Known Allergies) Fully Assessed 12/30/2021 REVIEW OF SYSTEMS: Review of Systems Respiratory: Negative for difficulty breathing. Cardiovascular: Negative for chest pain. Gastrointestinal: Negative for nausea, vomiting, diarrhea and constipation. PHYSICAL EXAM: BP 155/79 Pulse 74 Wt 95.7 kg (211 lb) SpO2 98% BMI 30.55 kg/m2 Physical Exam Constitutional: Appearance: Normal appearance. He is obese. Cardiovascular: Rate and Rhythm: Normal rate and regular rhythm. Pulmonary: Effort: Pulmonary effort is normal. Breath sounds: Normal breath sounds. Neurological: Mental Status: He is alert. Psychiatric: Mood and Affect: Mood normal. Behavior: Behavior normal. DATA: Creatinine Date Value Ref Range Status 05/19/2021 1.09 0.73 - 1.22 mg/dL Final Hemoglobin A1C (%) Date Value 05/19/2021 6.7 Hemoglobin A1C (POCT) (%) Date Value 12/30/2021 7.4 (more content not included)... [facility] 12-30-2021 Instructions Trish Bae APRN.[employer] - 12/30/2021 3:34 PM EDT 1. Glipizide XL 5 mg taking Breakfast 1 tab Dinner 1 tab 2. Fiasp Breakfast 4 units Lunch 10 units Dinner 4 units Plus ok to add additional fiasp at meals if sugars is over 150 per the scale below. < 150 Add 0 units 151-200 Add 1 unit 201-250 Add 2 units 251-300 Add 3 units 301-350 Add 4 units 351-400 Add 5 units >400 Add 5 units 3. Send me sugars in 1-2 wks. Sooner if needed. 4. Follow up in 4 months Trish Bae, MSN, OCCUPATIONAL THERAPY SUPERVISOR, BULLET CHARGING MACHINE OPERATOR-C, CDE Endocrinology [facility] Office [facility]/[address], [address] [place], [place] [address] Fax: documented in this encounter [facility] 12-30-2021 History of Presen t illness Narrative Reason for Consultation: DM Type 2 Referring Physician: SELF HISTORY OF PRESENT ILLNESS; Mr. Peters is a 76 year old male presenting for follow up regarding DM Type 2. He was initially diagnosed with diabetes about age 60. He does have a family history of diabetes mellitus in his mothers side of family LV 10/01/21 A1C today is 7.4 Attended DM education on 02/19/21 Had covid and had two rounds of prednisone. Now off of steroids History in addition to diabetes: HLD, peripheral neuropathy, diverticulosis Exacerbating factors: obesity His current diabetes regimen is: Glipizide XL 5 mg taking 2 tabs one tab BID --taking 2 breakfast and only 1 at dinner most night. fiasp 2 units TID plus SS--started when prescribed prednisone for lunch issues. --taking 3 at breakfast, 8-12 units lunch and 3 units dinner < 150 Add 0 units 151-200 Add 1 unit 201-250 Add 2 units 251-300 Add 3 units 301-350 Add 4 units 351-400 Add 5 units >400 Add 5 units Previous DM medication: Metformin --GI upset rybelsus--GI upset glimepiride Regarding symptoms of hyperglycemia, he is not experiencing any symptoms such as polyuria, polydipsia, nocturia or rapid weight loss or blurry vision. Exercise: ADL's *eating 3 meals per day Kiran is checking his blood glucose 2 x daily in AM He did bring a logbook today for review: FBS 96, 130 acS 150-160 Hypoglycemia frequency: denies Hypoglycemia awareness: Yes Overall, the patient has no acute complaints at this time. PAST MEDICAL HISTORY Diagnosis Date Acute gastritis without mention of hemorrhage Benign neoplasm of colon Diverticulosis of colon (without mention of hemorrhage) DM (diabetes mellitus) (HCC) Heart abnormality stiff left ventricle Hyperlipidemia Lead exposure Personal history of colonic polyps PAST SURGICAL HISTORY Procedure Laterality Date APPENDECTOMY COLONOSCOPY FLX DX W/COLLJ SPEC WHEN PFRMD 2003 Colonoscopy COLONOSCOPY FLX DX W/COLLJ SPEC WHEN PFRMD 07/15/09 COLONOSCOPY FLX DX W/COLLJ SPEC WHEN PFRMD 04/28/2014 Colonoscopy COLONOSCOPY FLX DX W/COLLJ SPEC WHEN PFRMD 07/08/2019 Colonoscopy EGD TRANSORAL BIOPSY SINGLE/MULTIPLE 07/15/09 LAPAROSCOPY SURG CHOLECYSTECTOMY Cholecystectomy, lap FAMILY HISTORY Problem Relation Age of Onset Coronary Artery Disease Mother Diabetes Mother Social History Tobacco Use Smoking status: Never Smoker Smokeless tobacco: Never Used Substance Use Topics Alcohol use: No Drug use: Not on file Current Outpatient Medications Medication Sig Dispense Refill Insulin Windsor, Disposable, (BD ULTRAFINE III MINI PEN) 31 gauge x 3/16 Use for insulin pen injections 3 times daily, as directed. DX:E11.42 300 Each 3 blood sugar diagnostic (TRUE METRIX GLUCOSE TEST STRIP) test strip Use as instructed to test glucose 3 times daily. DX:E11.42, insulin dependent. 300 Strip 1 glipiZIDE (GLUCOTROL XL) 5 mg 24 hr tablet Take 2 tabs at breakfast and 2 tab at dinner 360 tablet 1 Lancets lancets Use as instructed to test glucose 3 times daily. DX: E11.42, insulin dependent.; please dispense formulary preferred. 300 Each 1 insulin aspart, niacinamide, (FIASP FLEXTOUCH U-100 INSULIN) 100 unit/mL (3 mL) pen Inject subcutaneously 2 units TID meals plus SS up to 20 units daily 15 mL 4 doxazosin (CARDURA) 2 mg tablet Take 2 mg by mouth once daily. budesonide (PULMICORT FLEXHALER) 180 mcg/actuation aepb Inhale 2 Puffs as instructed twice daily. metoprolol succinate XL, long acting, 25 mg 24 hr tablet Take 25 mg by mouth once daily. simvastatin 20 mg tablet Take 20 mg by mouth daily at bedtime. aspirin, enteric coated (ASPIRIN LOW DOSE) 81 mg EC tablet Take 81 mg by mouth once daily. No current facility-administered medications for this visit. Allergies As of Date: 12/30/2021 (No Known Allergies) Fully Assessed 12/30/2021 REVIEW OF SYSTEMS: Review of Systems Respiratory: Negative for difficulty breathing. Cardiovascular: Negative for chest pain. Gastrointestinal: Negative for nausea, vomiting, diarrhea and constipation. PHYSICAL EXAM: BP 155/79 Pulse 74 Wt 95.7 kg (211 lb) SpO2 98% BMI 30.55 kg/m2 Physical Exam Constitutional: Appearance: Normal appearance. He is obese. Cardiovascular: Rate and Rhythm: Normal rate and regular rhythm. Pulmonary: Effort: Pulmonary effort is normal. Breath sounds: Normal breath sounds. Neurological: Mental Status: He is alert. Psychiatric: Mood and Affect: Mood normal. Behavior: Behavior normal. DATA: Creatinine Date Value Ref Range Status 05/19/2021 1.09 0.73 - 1.22 mg/dL Final Hemoglobin A1C (%) Date Value 05/19/2021 6.7 Hemoglobin A1C (POCT) (%) Date Value 12/30/2021 7.4 ) No components found for: URINEALBUMIN Cholesterol, Total (mg/dL) Date Value 05/19/2021 146 HDL Cholesterol (mg/dL) Date Value 05/19/2021 38 LDL Cholesterol (mg/dL) Date Value 05/19/2021 84 Triglyceride (mg/dL) Date Value 05/19/2021 120 IMPRESSION: Mr. Peters is a 76 year old male here for evaluation of DM Type 2 complicated by hyperlipidemia and peripheral neuropathy. RECOMMENDATIONS: (E11.42) Type 2 diabetes mellitus with diabetic polyneuropathy, without long-term current use of insulin ([facility]) (primary encounter diagnosis) Comment: Glycemic control is improving. He is comfortable staying on prandial insulin and has responded well. Will plan to wean off glipizide. He does not require basal insulin at this time but may moving forward. Plan: HEMOGLOBIN A1C (POC), insulin aspart, niacinamide, (FIASP FLEXTOUCH U-100 INSULIN) 100 unit/mL (3 mL) pen, glipiZIDE (GLUCOTROL XL) 5 mg 24 hr tablet, DISCONTINUED: glipiZIDE (GLUCOTROL XL) 5 mg 24 hr tablet Glipizide XL 5 mg taking Breakfast 1 tab Dinner 1 tab Fiasp Breakfast 4 units Lunch 10 units Dinner 4 units Plus ok to add additional fiasp at meals if sugars is over 150 per the scale below. < 150 Add 0 units 151-200 Add 1 unit 201-250 Add 2 units 251-300 Add 3 units 301-350 Add 4 units 351-400 Add 5 units >400 Add 5 units Send me sugars in 1-2 wks. Sooner if needed. Follow up in 4 months (E78.2) Mixed hyperlipidemia Comment: taking simvastatin Plan: Managed per PCP (E66.9, Z68.30) Class 1 obesity with serious comorbidity and body mass index (BMI) of 30.0 to 30.9 in adult, unspecified obesity type Comment: Body mass index is 30.55 kg/m . Plan: Encouraged increase dietary and exercise efforts as able I spent a total of 30 minutes on the date of the service which included preparing to see the patient, uron-cy-bupo patient care, completing clinical documentation, obtaining and/or reviewing separately obtained history, performing a medically appropriate examination, counseling and educating the patient/family/caregiver, ordering medications, tests, or procedures and communicating results to the patient/family/caregiver. Trish Bae, MSN, OCCUPATIONAL THERAPY SUPERVISOR, BULLET CHARGING MACHINE OPERATOR-C, CDE Endocrinology [facility] Office [facility]/[address] [place], [place] [address] Fax: documented in this encounter [facility] 12-22-2021 Miscellaneous Notes Patient phones requesting refills as follows: Please re-send, different pharmacy. LANDEN: 09/2021 Pending Prescriptions Disp Refills PEN NEEDLE, DIABETIC 31 GAUGE X 3/16 300 Each 3 Sig: Use for insulin pen injections 3 times daily, as directed. DX:E11.42 MARCELLE: No Please review and advise. Jaqueline Tam RN documented in this encounter [facility] 11-25-2021 Miscellaneous Notes Patient phones requesting refills as follows: Patient called back and needs this RX as well. He is out of Lancets. Pending Prescriptions Disp Refills LANCETS 300 Each 1 Sig: Use as instructed to test glucose 3 times daily. DX: E11.42, insulin dependent. Please review and advise. Jaqueline Tam RN documented in this encounter [facility] Diagnosis Type 2 diabetes mellitus with diabetic polyneuropathy, without long-term current use of insulin (HCC)- Primary [facility] Diagnosis Type 2 diabetes mellitus with diabetic polyneuropathy, without long-term current use of insulin (HCC)- Primary Mixed hyperlipidemia Class 1 obesity with serious comorbidity and body mass index (BMI) of 30.0 to 30.9 in adult, unspecified obesity type [facility]* Diagnosis Type 2 diabetes mellitus with diabetic polyneuropathy, without long-term current use of insulin (HCC) [facility]* Diagnosis Type 2 diabetes mellitus with diabetic polyneuropathy, without long-term current use of insulin (HCC) [facility] Diagnosis Type 2 diabetes mellitus with diabetic polyneuropathy, without long-term current use of insulin (HCC)- Primary Mixed hyperlipidemia Class 1 obesity with serious comorbidity and body mass index (BMI) of 30.0 to 30.9 in adult, unspecified obesity type [facility] Diagnosis Type 2 diabetes mellitus with diabetic polyneuropathy, without long-term current use of insulin (HCC) [facility] Diagnosis Type 2 diabetes mellitus with diabetic polyneuropathy, without long-term current use of insulin (HCC)- Primary Mixed hyperlipidemia Class 1 obesity with serious comorbidity and body mass index (BMI) of 30.0 to 30.9 in adult, unspecified obesity type [facility] Diagnosis Type 2 diabetes mellitus with diabetic polyneuropathy, without long-term current use of insulin (HCC) [facility] Diagnosis Type 2 diabetes mellitus with diabetic polyneuropathy, without long-term current use of insulin (HCC) [facility] Diagnosis Type 2 diabetes mellitus with diabetic polyneuropathy, without long-term current use of insulin (HCC) [facility] Diagnosis Type 2 diabetes mellitus with diabetic polyneuropathy, without long-term current use of insulin (HCC) [facility] Diagnosis Type 2 diabetes mellitus with diabetic polyneuropathy, without long-term current use of insulin (HCC) documented in this encounter [facility] Summary Purpose Family History No Family History Records FoundNo Family History Records FoundNo Family History Records FoundNo Family History Records Found Advance Directives Documents on File Type Date Recorded 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 Advance Directive(s) 07/08/2019 7:16 AM Advance Directive(s) 06/24/2019 4:30 PM Additional Source Comments (unrecognized sect ion and content) No Status Records FoundNo Status Records FoundNo Status Records FoundNo Status Records Found INFORMATION SOURCE (unrecogn ized section and content) DATE CREATED AUTHOR AUTHOR'S ORGANIZ ATION 03/03/2019 [facility] ([place]) DATE CREATED AUTHOR AUTHOR'S ORGANIZ ATION 07/14/2020 [facility] DATE CREATED AUTHOR AUTHOR'S ORGANIZ ATION 10/08/2022 [facility] Source Comments (unrecognize d section and content) In the event this informatio n is protected by the Federal Confidentiality of Alcohol and Drug Abuse Patient Records regulations: The Federal rules restrict any use of the information to criminally investigate or prosecute any alcohol or drug abuse patient.[facility] Center[facility] the event this information is protected by the Federal Confidentiality of Alcohol and Drug Abuse Patient Records regulations: The Federal rules restrict any use of the information to criminally investigate or prosecute any alcohol or drug abuse patient.[facility] CenterIn the event this information is protected by the Federal Confidentiality of Alcohol and Drug Abuse Patient Records regulations: The Federal rules restrict any use of the information to criminally investigate or prosecute any alcohol or drug abuse patient.[facility] CenterIn the event this information is protected by the Federal Confidentiality of Alcohol and Drug Abuse Patient Records regulations: The Federal rules restrict any use of the information to criminally investigate or prosecute any alcohol or drug abuse patient.[facility] CenterIn the event this information is protected by the Federal Confidentiality of Alcohol and Drug Abuse Patient Records regulations: The Federal rules restrict any use of the information to criminally investigate or prosecute any alcohol or drug abuse patient.[facility] CenterIn the event this information is protected by the Federal Confidentiality of Alcohol and Drug Abuse Patient Records regulations: The Federal rules restrict any use of the information to criminally investigate or prosecute any alcohol or drug abuse patient.[facility] CenterIn the event this information is protected by the Federal Confidentiality of Alcohol and Drug Abuse Patient Records regulations: The Federal rules restrict any use of the information to criminally investigate or prosecute any alcohol or drug abuse patient.[facility] CenterIn the event this information is protected by the Federal Confidentiality of Alcohol and Drug Abuse Patient Records regulations: The Federal rules restrict any use of the information to criminally investigate or prosecute any alcohol or drug abuse patient.[facility] CenterIn the event this information is protected by the Federal Confidentiality of Alcohol and Drug Abuse Patient Records regulations: The Federal rules restrict any use of the information to criminally investigate or prosecute any alcohol or drug abuse patient.[facility] CenterIn the event this information is protected by the Federal Confidentiality of Alcohol and Drug Abuse Patient Records regulations: The Federal rules restrict any use of the information to criminally investigate or prosecute any alcohol or drug abuse patient.[facility] CenterIn the event this information is protected by the Federal Confidentiality of Alcohol and Drug Abuse Patient Records regulations: The Federal rules restrict any use of the information to criminally investigate or prosecute any alcohol or drug abuse patient.[facility] CenterIn the event this information is protected by the Federal Confidentiality of Alcohol and Drug Abuse Patient Records regulations: The Federal rules restrict any use of the information to criminally investigate or prosecute any alcohol or drug abuse patient.[facility] CenterIn the event this information is protected by the Federal Confidentiality of Alcohol and Drug Abuse Patient Records regulations: The Federal rules restrict any use of the information to criminally investigate or prosecute any alcohol or drug abuse patient.[facility] CenterIn the event this information is protected by the Federal Confidentiality of Alcohol and Drug Abuse Patient Records regulations: The Federal rules restrict any use of the information to criminally investigate or prosecute any alcohol or drug abuse patient.[facility] CenterIn the event this information is protected by the Federal Confidentiality of Alcohol and Drug Abuse Patient Records regulations: The Federal rules restrict any use of the information to criminally investigate or prosecute any alcohol or drug abuse patient.[facility] CenterIn the event this information is protected by the Federal Confidentiality of Alcohol and Drug Abuse Patient Records regulations: The Federal rules restrict any use of the information to criminally investigate or prosecute any alcohol or drug abuse patient.[facility] CenterIn the event this information is protected by the Federal Confidentiality of Alcohol and Drug Abuse Patient Records regulations: The Federal rules restrict any use of the information to criminally investigate or prosecute any alcohol or drug abuse patient.[facility] CenterIn the event this information is protected by the Federal Confidentiality of Alcohol and Drug Abuse Patient Records regulations: The Federal rules restrict any use of the information to criminally investigate or prosecute any alcohol or drug abuse patient.[facility] CenterIn the event this information is protected by the Federal Confidentiality of Alcohol and Drug Abuse Patient Records regulations: The Federal rules restrict any use of the information to criminally investigate or prosecute any alcohol or drug abuse patient.[facility] CenterIn the event this information is protected by the Federal Confidentiality of Alcohol and Drug Abuse Patient Records regulations: The Federal rules restrict any use of the information to criminally investigate or prosecute any alcohol or drug abuse patient.[facility] CenterIn the event this information is protected by the Federal Confidentiality of Alcohol and Drug Abuse Patient Records regulations: The Federal rules restrict any use of the information to criminally investigate or prosecute any alcohol or drug abuse patient.[facility] CenterIn the event this information is protected by the Federal Confidentiality of Alcohol and Drug Abuse Patient Records regulations: The Federal rules restrict any use of the information to criminally investigate or prosecute any alcohol or drug abuse patient.[facility] Reason for Visit (unrecogniz ed section and content) Reason Onset Date Comments Refill Request 12/22/2021 Reason Comments Insulin Dependent Diabetes Mellitus Reason Comments Follow Up Insulin Dependent Diabetes Mellitus Reason Comments 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 Reason Comments Non-insulin Dependent Diabetes Mellitus 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 Reason Comments Medication Problem Reason Comments Refill Request Care Teams (unrecognized sec tion and content) Automatic Shirring Machine Operator Relationship Specialty Start Date End Date Selena Parks MD [address] [place] [address] PCP - General Family Practice 02/19/21 Automatic Shirring Machine Operator Relationship Specialty Start Date End Date Selena Parks MD [address] [place] [address] PCP - General Family Practice 02/19/21 Automatic Shirring Machine Operator Relationship Specialty Start Date End Date Selena Parks MD [address] [place] [address] PCP - General Family Practice 02/19/21 Automatic Shirring Machine Operator Relationship Specialty Start Date End Date Selena Parks MD [address] [place] [address] PCP - General Family Practice 02/19/21 Automatic Shirring Machine Operator Relationship Specialty Start Date End Date Selena Parks MD [address] [place] [address] PCP - General Family Practice 02/19/21 Automatic Shirring Machine Operator Relationship Specialty Start Date End Date Selena Parks MD [address] [place] [address] PCP - General Family Practice 02/19/21 Automatic Shirring Machine Operator Relationship Specialty Start Date End Date Selena Parks MD [address] [place] [address] PCP - General Family Medicine 02/19/21 Automatic Shirring Machine Operator Relationship Specialty Start Date End Date Selena Parks MD [address] [place] [address] PCP - General Family Medicine 02/19/21 Automatic Shirring Machine Operator Relationship Specialty Start Date End Date Selena Parks MD [address] [place] [address] PCP - General Family Medicine 02/19/21 Automatic Shirring Machine Operator Relationship Specialty Start Date End Date Selena Parks MD [address] [place] [address] PCP - General Family Medicine 02/19/21 Automatic Shirring Machine Operator Relationship Specialty Start Date End Date Selena Parks MD [address] [place] [address] PCP - General Family Medicine 02/19/21 Automatic Shirring Machine Operator Relationship Specialty Start Date End Date Selena Parks MD [address] [place] [address] PCP - General Family Medicine 02/19/21 Automatic Shirring Machine Operator Relationship Specialty Start Date End Date Selena Parks MD [address] [place] [address] PCP - General Family Medicine 02/19/21 Automatic Shirring Machine Operator Relationship Specialty Start Date End Date Selena Parks MD [address] [place] [address] PCP - General Family Medicine 02/19/21 Automatic Shirring Machine Operator Relationship Specialty Start Date End Date Selena Parks MD [address] [place] [address] PCP - General Family Medicine 02/19/21 FOR RECORDS PERTAINING TO PATIENTS WHO ARE OR HAVE BEEN ENROLLED IN A CHEMICAL DEPENDENCY/SUBSTANCEABUSE PROGRAM, SOME INFORMATION MAY BE OMITTED. This clinical summary was aggregated from multiple sources. Caution should be exercised in using it in the provision of clinical care. This summary normalizes information from multiple sources, and as a consequence, information in this document may materially change the coding, format and clinical context of patient data. In addition, data may be omitted in some cases. CLINICAL DECISIONS SHOULD BE BASED ON THE PRIMARY CLINICAL RECORDS. [employer] [facility]. provides no warranty or guarantee of the accuracy or completeness of information in this document.
[2023-09-18 15:04] LABS: Absolute Lymphocyte Count 1.08 X10^3/uL (0.83-4.51); Absolute Neutrophil Count 5.8 X10^3/uL (2.0-7.7); Basophil# 0.07 X10^3/uL; Basophil% 0.9 % (0-1); Eosinophils% 2.6 % (0-5); Hematocrit 40.5 % (40-54); Hemoglobin 13.1 g/dL (13.0-16.5); Lymphocyte # 1.08 X10^3/ul (0.83-4.51); Mean Corp Hgb Conc 32.3 g/dL (32-36); Mean Corpuscular Hgb 28.9 pg (27.0-32.0); Mean Corpuscular Volume 89.2 fL (80-94); Mean Platelet Vol. 10.7 fl (6.2-12.0); Monocyte# 0.59 X10^3/uL; Monocyte% 7.6 % (0-10); NRBC Flagged by Analyzer 0 % (0-5); Neutrophil # 5.75 X10^3/uL (2.7-7.7); Neutrophil % 74.5 % (47-70); Platelet Count 194 K/mm3 (150-450); RBC Distribution Width SD 42.4 fl (35.1-43.9); Red Blood Count 4.54 M/mm3 (4.6-6.2); White Blood Count 7.7 K/mm3 (4.4-11.0)
[2023-09-18 15:19] LABS: ALB/GLOB Ratio 1.1 RATIO (0.9-2.4); AST(SGOT) 31 U/L (15-37); Alanine Aminotransfer ALT/SGPT 35 U/L (16-61); Albumin, Serum 3.4 g/dL (3.2-5.0); Alkaline Phosphatase 89 U/L (45-117); Anion Gap 6 (5-15); BUN 21 mg/dL (7-18); BUN/Creat Ratio 18.3 RATIO (10-20); Calcium,Total 8.9 mg/dL (8.5-10.1); Chloride 101 mmol/L (98-107); Creatinine, Serum 1.15 mg/dL (0.70-1.30); EST Glomerular Filtration Rate 65 mL/min (>60); Est Glom Filt Rate - Afr Amer 79 mL/min (>60); Globulin 3.2 g/dL (2.2-4.2); Glucose 211 mg/dL (74-106); PSA,Total- Diagnostic 6.85 ng/mL (0.0-4.0); Protein, Total 6.6 g/dL (6.4-8.2); Sodium Level 135 mmol/L (136-145)
== END | disposition home or self-care (01) ==
LOC: MFPLAB 12:17
PROVIDERS: PCP Family Medicine; Visit Provider Family Medicine
DX: R97.20 Elevated prostate specific antigen [PSA] (principal); E11.8 Type 2 diabetes mellitus with unspecified complications
CPT/HCPCS: 36415; 80053; 83036; 84153; 85025

== ENCOUNTER → 2024-05-07 | Outpatient (CLI) | payer MEDICARE, OTHER, SELFPAY ==
[2024-05-07 15:40] LABS: Absolute Neutrophil Count 7.3 X10^3/uL (2.0-7.7); Basophil# 0.07 X10^3/uL; Basophil% 0.7 % (0-1); Eosinophil# 0.17 X10^3/uL; Eosinophils% 1.8 % (0-5); Hematocrit 38.3 % (40-54); Hemoglobin 12.7 g/dL (13.0-16.5); Lymphocyte % 12.7 % (19-41); Mean Corp Hgb Conc 33.2 g/dL (32-36); Mean Corpuscular Hgb 28.9 pg (27.0-32.0); Mean Corpuscular Volume 87.2 fL (80-94); Mean Platelet Vol. 10.5 fl (6.2-12.0); Monocyte# 0.69 X10^3/uL; Monocyte% 7.3 % (0-10); NRBC Flagged by Analyzer 0 % (0-5); Neutrophil # 7.31 X10^3/uL (2.7-7.7); Neutrophil % 77.2 % (47-70); Platelet Count 178 K/mm3 (150-450); RBC Distribution Width CV 13.4 % (11.6-14.6); RBC Distribution Width SD 42.8 fl (35.1-43.9); Red Blood Count 4.39 M/mm3 (4.6-6.2); White Blood Count 9.5 K/mm3 (4.4-11.0)
[2024-05-07 15:52] LABS: ALB/GLOB Ratio 1.2 RATIO (0.9-2.4); AST(SGOT) 23 U/L (15-37); Alanine Aminotransfer ALT/SGPT 28 U/L (16-61); Albumin, Serum 3.4 g/dL (3.2-5.0); Alkaline Phosphatase 78 U/L (45-117); Anion Gap 5 (5-15); BUN 24 mg/dL (7-18); BUN/Creat Ratio 20.2 RATIO (10-20); Calcium,Total 8.7 mg/dL (8.5-10.1); Chloride 104 mmol/L (98-107); Cholesterol 124 mg/dL (200); Creatinine, Serum 1.19 mg/dL (0.70-1.30); EST Glomerular Filtration Rate 62 mL/min (>60); Est Glom Filt Rate - Afr Amer 76 mL/min (>60); Globulin 2.9 g/dL (2.2-4.2); Glucose 158 mg/dL (74-106); High Density Lipoprotein 40 mg/dL; Potassium 3.8 mmol/L (3.5-5.1); Protein, Total 6.3 g/dL (6.4-8.2); Sodium Level 138 mmol/L (136-145); Triglycerides 123 mg/dL; Very Low Density Lipoprotein 25 mg/dL (5-40)
[2024-05-07 15:57] LABS: Microalbumin:Creatinine Ratio 6.2 mg/g CRE (<30 mg/g CRE)
== END | disposition home or self-care (01) ==
LOC: LAB 14:11
PROVIDERS: PCP Family Medicine; Referring Provider Family Medicine; Visit Provider Family Medicine
DX: N18.2 Chronic kidney disease, stage 2 (mild) (principal); E78.5 Hyperlipidemia, unspecified; D63.1 Anemia in chronic kidney disease
CPT/HCPCS: 36415; 80053; 80061; 82043; 82570; 85025

== ENCOUNTER → 2024-10-01 | Outpatient (CLI) | payer MEDICARE, OTHER, SELFPAY ==
[2024-10-01 17:57] LABS: Basophil# 0.05 X10^3/uL; Basophil% 0.6 % (0-1); Eosinophil# 0.22 X10^3/uL; Eosinophils% 2.7 % (0-5); Hematocrit 38.5 % (40-54); Hemoglobin 12.7 g/dL (13.0-16.5); Lymphocyte % 14.7 % (19-41); Mean Corpuscular Volume 87.9 fL (80-94); Mean Platelet Vol. 10.3 fl (6.2-12.0); Monocyte# 0.68 X10^3/uL; Monocyte% 8.3 % (0-10); NRBC Flagged by Analyzer 0 % (0-5); Neutrophil # 6.02 X10^3/uL (2.7-7.7); Neutrophil % 73.5 % (47-70); Platelet Count 166 K/mm3 (150-450); RBC Distribution Width CV 13.2 % (11.6-14.6); RBC Distribution Width SD 42.4 fl (35.1-43.9); Red Blood Count 4.38 M/mm3 (4.6-6.2); White Blood Count 8.2 K/mm3 (4.4-11.0)
[2024-10-01 19:00] LABS: ALB/GLOB Ratio 1.2 RATIO (0.9-2.4); AST(SGOT) 31 U/L (15-37); Alanine Aminotransfer ALT/SGPT 30 U/L (16-61); Albumin, Serum 3.4 g/dL (3.2-5.0); Alkaline Phosphatase 78 U/L (45-117); Anion Gap 8 (5-15); BUN 27 mg/dL (7-18); BUN/Creat Ratio 20.3 RATIO (10-20); Calcium,Total 8.7 mg/dL (8.5-10.1); Chloride 105 mmol/L (98-107); Creatinine, Serum 1.33 mg/dL (0.70-1.30); EST Glomerular Filtration Rate 55 mL/min (>60); Est Glom Filt Rate - Afr Amer 66 mL/min (>60); Globulin 2.9 g/dL (2.2-4.2); Glucose 116 mg/dL (74-106); PSA,Total- Diagnostic 5.22 ng/mL (0.0-4.0); Potassium 3.7 mmol/L (3.5-5.1); Protein, Total 6.3 g/dL (6.4-8.2); Sodium Level 140 mmol/L (136-145)
[2024-10-01 19:40] LABS: Microalbumin,Random Urine 15.7 mg/L (NO RANGE EST.)
[2024-10-01 23:37] LABS: Hemoglobin A1c 6.5 % (3.8-5.6)
== END | disposition home or self-care (01) ==
LOC: MFPLAB 15:40
PROVIDERS: PCP Family Medicine; Referring Provider Family Medicine; Visit Provider Family Medicine
DX: E11.8 Type 2 diabetes mellitus with unspecified complications (principal); R97.20 Elevated prostate specific antigen [PSA]; I73.9 Peripheral vascular disease, unspecified
CPT/HCPCS: 36415; 80053; 82043; 82570; 83036; 84153; 85025

== ENCOUNTER → 2025-04-01 | Outpatient (CLI) | payer MEDICARE, OTHER, SELFPAY ==
[2025-04-01 15:30] LABS: Hematocrit 39.5 % (40-54); Hemoglobin 13.1 g/dL (13.0-16.5); Immature Granulocytes Count 0.020 X10^3/uL (0.0-0.0); Mean Corp Hgb Conc 33.2 g/dL (32-36); Mean Corpuscular Volume 88.8 fL (80-94); Mean Platelet Vol. 11.0 fl (6.2-12.0); NRBC Flagged by Analyzer 0 % (0-5); Platelet Count 181 K/mm3 (150-450); RBC Distribution Width CV 13.0 % (11.6-14.6); RBC Distribution Width SD 42.4 fl (35.1-43.9); Red Blood Count 4.45 M/mm3 (4.6-6.2); White Blood Count 8.3 K/mm3 (4.4-11.0)
[2025-04-01 16:08] LABS: Creatinine, Urine (random) 139.00 mg/dL (39.00-259.00); Microalbumin,Random Urine < 12.0 mg/L (<20 mg/L)
[2025-04-01 16:16] LABS: AST(SGOT) 32 U/L (<=37); Alanine Aminotransfer ALT/SGPT 23 U/L (<=46); Albumin, Serum 4.0 g/dL (3.4-4.8); Alkaline Phosphatase 76 U/L (40-129); Anion Gap 11 (5-15); BUN 25 mg/dL (4-19); BUN/Creat Ratio 22.6 RATIO (10-20); Calcium,Total 9.3 mg/dL (7.6-11.0); Carbon Dioxide 26.3 mmol/L (21.0-32.0); Chloride 101 mmol/L (98-108); Ferritin 90 ng/mL (37-417); Globulin 2.3 g/dL (2.2-4.2); Glucose 115 mg/dL (70-99); PSA,Total- Diagnostic 4.65 ng/mL (0.00-4.00); Potassium 3.8 mmol/L (3.3-5.1)
== END | disposition home or self-care (01) ==
LOC: MFPLAB 11:34
PROVIDERS: PCP Family Medicine; Referring Provider Family Medicine; Visit Provider Family Medicine
DX: E11.8 Type 2 diabetes mellitus with unspecified complications (principal); E61.1 Iron deficiency; R97.20 Elevated prostate specific antigen [PSA]; R94.6 Abnormal results of thyroid function studies
CPT/HCPCS: 36415; 80053; 82043; 82570; 82728; 84153; 84443; 85025

== ENCOUNTER → 2025-05-27 | Outpatient (CLI) | payer MEDICARE, OTHER, SELFPAY ==
[2025-05-27 18:26] LABS: AST(SGOT) 29 U/L (<=37); Alanine Aminotransfer ALT/SGPT 23 U/L (<=46); Albumin, Serum 4.1 g/dL (3.4-4.8); Alkaline Phosphatase 74 U/L (40-129); Anion Gap 12 (5-15); BUN 33 mg/dL (4-19); BUN/Creat Ratio 30.7 RATIO (10-20); Calcium,Total 9.2 mg/dL (7.6-11.0); Carbon Dioxide 25.2 mmol/L (21.0-32.0); Chloride 100 mmol/L (98-108); Globulin 2.3 g/dL (2.2-4.2); Glucose 158 mg/dL (70-99); Potassium 3.6 mmol/L (3.3-5.1)
[2025-06-02 14:08] LABS: PROLACTIN 5.3 ng/mL (3.6-32.0); Testosterone, % Free 1.92 % (1.50-4.20); Testosterone, Free 5.15 ng/dL (5.00-21.00)
== END | disposition home or self-care (01) ==
LOC: MFPLAB 14:57
PROVIDERS: PCP Family Medicine; Visit Provider Family Medicine
DX: N64.4 Mastodynia (principal)
CPT/HCPCS: 36415; 80053; 84146; 84402; 84403; 84443